=== PATIENT | male | born 1990 | race Caucasian/White ===

== ENCOUNTER 2020-08-22 15:13 | Emergency (ER) | payer OTHER, SELFPAY ==
--- NOTE | ~2020-08-22 | XR_ITS ---
EXAMINATION: XR foot RT min 3V DATE: 08/22/2020 16:01 INDICATION: Right foot injury and pain. TECHNIQUE: 4 views of right foot were obtained. COMPARISON: Right foot radiographs 07/28/2006 FINDINGS: There are nondisplaced comminuted fractures of the heads of third and fourth proximal phala nges with involvement of the articular services. There is mild osteoarthritis of first metatarsophala ngeal joint and some of the interphalangeal joints. IMPRESSION: 1. Nondisplaced comminuted fractures of the heads of third and fourth proximal phalanges. Reviewed, dictated and finalized at location A. ER
[2020-08-22 15:30] VITALS: BP 124/66; PULSE 77; RESP 16; TEMP 36.7; O2SAT 98
--- NOTE | 2020-08-22 15:37 | ED.LOWEXIN ---
HPI - Extremity Injury (Lower) General Chief Complaint: Extremity Injury, Lower Stated Complaint: toe injury Time Seen by Provider: 08/22/20 15:37 History of Present Illness HPI Narrative: 30 yo male presents to the ED for a toe injury. He dropped a deep freeze on his right foot about 1 hour ago. It landed across toes 1,2,3. He has moderate pain. He took tylenol before coming. ROM is mildly limited. He has bleeding from around the first toe nail. Related Data Allergies Allergy/AdvReac Type Severity Reaction Status Date / Time No Known Allergies Allergy Verified 08/22/20 15:32 Review of Systems Review of Systems: All systems reviewed & are unremarkable except as noted in HPI and below Constitutional: Constitutional: Denies chills, Denies fever(s) and Denies weakness ENT: Reports system reviewed and no additional complaints, except as documented Cardiovascular: Cardiovascular: Denies chest pain Respiratory: Respiratory: Denies dyspnea Gastrointestinal: Gastrointestinal: Reports no additional gastrointestinal complaints Musculoskeletal: Musculoskeletal: Denies back pain Neurologic: Denies dizziness, Denies numbness and Denies weakness Hematologic/Lymphatic: Hematologic/Lymphatic: Reports no additional hematologic/lymphatic complaints REPLACED BY [facility] Past Medical History Medical History Healthy adult male Social History Social History Smoking status: Never smoker Exam Const: General: healthy appearing, no acute distress and alert Orientation/consciousness: patient oriented x3 HENMT: Head: normal to inspection Resp: Effort & Inspection: normal respiratory effort Auscultation: clear to auscultation bilaterally Cardio: Rate: regular rate Rhythm: regular rhythm Other: 2 + right DP Skin: General skin exam: normal color Wounds: no wounds Neuro: General: patient oriented x3, moves all extremities and CN's II-XI intact bilaterally Speech: normal speech Extrem: Other: Mildly limited flexion in toes 1,2,3 on the right. Bleeding around first toenail bed. No obvious deformity. Course Vital Signs Vital signs: Vital Signs Temperature 36.7 C 08/22/20 15:30 Pulse Rate 77 08/22/20 15:30 Respiratory Rate 16 08/22/20 15:30 Blood Pressure 124/66 08/22/20 15:30 Pulse Oximetry 98 08/22/20 15:30 Temperature 36.7 C 08/22/20 15:30 Pulse Rate 77 08/22/20 15:30 Respiratory Rate 16 08/22/20 15:30 Blood Pressure 124/66 08/22/20 15:30 Pulse Oximetry 98 08/22/20 15:30 MDM - Extremity Injury (Lower) Differential Diagnosis Differential diagnosis: Likely fracture of toe Discharge Plan Discharge Clinical Impression: Fracture of toe of right foot Qualifiers: Encounter type: initial encounter Toe: lesser toe Fracture type: closed Phalanx: proximal Fracture alignment: nondisplaced Qualified Code(s): S92.514A - Nondisplaced fracture of proximal phalanx of right lesser toe(s), initial encounter for closed fracture Patient Disposition: Home, Self-Care Condition: Stable Instructions: Toe Fracture (ED) Follow-up/Referrals: PHYSICIAN,DRUM PRINTER [Primary Care Provider] - Radha Solis DO [Physician] -
[2020-08-22] MEDS: IBUPROFEN 600 MG TABLET PO (16:07)
== END 2020-08-22 17:13 | disposition home or self-care (01) ==
PROVIDERS: Emergency Provider Emergency Medicine
DX: S92.514A Nondisplaced fracture of proximal phalanx of right lesser toe(s), initial encounter for closed fracture (principal); W20.8XXA Other cause of strike by thrown, projected or falling object, initial encounter
CPT/HCPCS: 73630; 99284; A9270

== ENCOUNTER 2021-10-12 13:25 | Emergency (ER) | payer OTHER, SELFPAY ==
--- NOTE | ~2021-10-12 | CT_ITS ---
EXAMINATION: CT abdomen pelvis w con DATE: 10/12/2021 14:33 INDICATION: Bilateral flank pain, testicular pain. Nausea and vomiting. TECHNIQUE: Computed tomography (CT) of the abdomen and pelvis was performed with 100 CC Omnipaque 350 intravenous contrast. Automated exposure control and iterative reconstruction technique were employe d. Exam dose: 437.42 mGy-cm total exam DLP. COMPARISON: None. FINDINGS: There is minimal dependent atelectasis in both lower lobes. Normal heart size. No pericardial or pleural effusion. The liver, gallbladder, bile ducts, spleen, pancreas, pancreatic duct, and adrenal glands and kidneys are unremarkable. No urinary tract calculus or hydroureteronephrosis. The urinary bladder is evacuat ed. Normal caliber of the abdominal aorta. No intraperitoneal or retroperitoneal or pelvic mass lesion or adenopathy or ascites. Normal appendix. No bowel obstruction, bowel wall thickening, pneumatosis or intraperitoneal free air . Very small fat-containing umbilical hernia. Included skeletal structures are unremarkable. IMPRESSION: No significant abnormality Reviewed, dictated and finalized at Location A. Reviewed, dictated and finalized at location A. IMPRESSION: No significant abnormality
--- NOTE | ~2021-10-12 | US_ITS ---
US scrotum doppler DATE: 10/12/2021 16:18 INDICATION: Scrotal pain TECHNIQUE: Real-time and color flow imaging and Doppler analysis of the scrotal contents COMPARISON: None FINDINGS: No testicular mass lesion or torsion. Normal bilateral epidymidis. Small bilateral hydroc eles. No varicoceles. IMPRESSION: Small hydroceles; no testicular mass lesion or torsion Reviewed, dictated and finalized at [facility]. Reviewed, dictated and finalized at location A.
[2021-10-12 13:39] VITALS: BP 169/87; PULSE 96; RESP 16; TEMP 36.8; O2SAT 98
--- NOTE | 2021-10-12 13:54 | ED.GENADULT ---
HPI - General Adult General Chief complaint: Nausea/Vomiting/Diarrhea Stated complaint: NUNEZ, testicular pain, vomiting Time Seen by Provider: 10/12/21 13:43 Source: patient and family Limitations: no limitations History of Present Illness HPI narrative: Patient is 31 years old white male had sudden onset of left flank pain, then right flank pain across lower back started last night at 9 PM while sitting watching TV. Later started having pain in the testicle bilaterally, 2 hours later started having generalized headache which is intermittent for the last 6 years. Patient reports nausea and the vomiting up to 5 times since last night. Patient reports lifting a toilet yesterday during noon . But he said that was very light wt.. Currently patient main complaint is back pain. Patient denies any fever, chills, diarrhea, constipation, urinary symptoms. Related Data Allergies Allergy/AdvReac Type Severity Reaction Status Date / Time No Known Allergies Allergy Verified 08/22/20 15:32 Review of Systems Review of Systems: CONSTITUTIONAL: Denies fever, chills, or sweats. EYES: Denies visual changes, redness, or discharge. ENT: Denies rhinorrhea, congestion, sore throat, or otalgia. CARDIOVASCULAR: Denies chest pain, palpitations, or edema. RESPIRATORY: Denies cough or dyspnea. GASTROINTESTINAL: Denies abdominal pain, nausea, vomiting, or diarrhea. GENITOURINARY: Denies dysuria or hematuria. SKIN: Denies rash or itching. MUSCULOSKELETAL: Denies back pain, joint pain, or myalgia. NEUROLOGIC: Denies headache, numbness, or weakness. PSYCHIATRIC: Denies anxiety or depression. PMFSH Past Medical History Medical History Healthy adult male Social History Social History Smoking status: Never smoker Exam Narrative: General appearance: Well-developed, well-nourished Skin: Normal color Head: Normocephalic, nontraumatic Eyes: Clear conjunctiva ENT: Oropharynx normal, ears normal, nose normal Neck: Supple, nontender Chest and respiratory: Airway patent, no respiratory distress, no accessory muscle use Heart: Regular rate/rhythm Abdomen: Soft, nontender, no organomegaly, quiet bowel sounds Vascular: Normal peripheral pulses, normal capillary refill. Musculoskeletal: Normal range of motion, nontender back Neurologic: Alert and oriented ?3, [employer] is normal as tested, no gross motor deficit Course Course Emergency Course: Stable Work-up did not show any significant findings to explain patient condition. Musculoskeletal pain is my concern. Patient lifted a toilet few hours prior to the beginning of the pain. Vomiting could be secondary to the severity of the pain, radiation of pain to the testicles is uncertain etiology at this time. The head which should been going on for the last 6 years. Patient will be discharged on naproxen Vital Signs Vital signs: Vital Signs Temperature 36.8 C 10/12/21 13:39 Pulse Rate 96 10/12/21 13:39 Respiratory Rate 16 10/12/21 13:39 Blood Pressure 169/87 H 10/12/21 13:39 Pulse Oximetry 98 10/12/21 13:39 Temperature 36.8 C 10/12/21 13:39 Pulse Rate 96 10/12/21 13:39 Respiratory Rate 16 10/12/21 13:39 Blood Pressure 169/87 H 10/12/21 13:39 Pulse Oximetry 98 10/12/21 13:39 Medical Decision Making [facility] Narrative Medical decision making narrative: Patient presents with lower back, flank pain, testicular pain, headache. Kidney stone is my concern versus pyelonephritis. Differential Diagnosis Differential Diagnosis: Pyelonephritis, kidney stone, urinary tract infection, musculoskeletal pain Vital
[2021-10-12] MEDS: HYDROmorphone HCL INJ (*CRX) 1 MG/ML SYR 0.5 MG IV PUSH (14:03)
[2021-10-12] MEDS: ONDANSETRON INJ 4 MG/2 ML VIAL IV PUSH (14:03)
[2021-10-12] MEDS: SODIUM CHLORIDE 0.9% IV 1,000 ML 999 ML IV CONT (14:03)
[2021-10-12 14:10] LABS: Basophils Absolute Auto 0.1 K/mm3 (0.0-0.1); Basophils Percent Auto 0.5 % (0.2-1.2); Eosinophils Percent Auto 0.2 % (0-4.4); Hematocrit 41.7 % (42.0-52.0); Immature Granulocyte Absolute 0.07 K/mm3 (0.00-0.031); Immature Granulocyte Percent A 0.6 % (0-0.5); Lymphocytes Absolute Auto 0.52 K/mm3 (0.9-3.2); Lymphocytes Percent Auto 4.5 % (18.3-44.2); Mean Corpuscular HGB Conc 33.6 g/dl (32-36); Mean Corpuscular Hemoglobin 31.5 pg (26-34); Mean Corpuscular Volume 93.9 fl (80-100); Mean Platelet Volume 8.8 fl (7.4-10.4); Monocytes Absolute Auto 1.6 K/mm3 (0.1-0.6); Monocytes Percent Auto 13.5 % (2.6-8.5); Neutrophils Absolute Auto 9.3 K/mm3 (1.3-6.7); Neutrophils Percent Auto 80.7 % (45.5-73.1); Platelet Count Result 329 k/mm3 (150-375); Red Blood Count 4.44 M/mm3 (4.6-6.20); Red Cell Distribution Width 13.7 % (11.5-14.5); White Blood Count 11.5 K/mm3 (4.5-10.0)
[2021-10-12 14:19] LABS: Alanine Aminotransferase 25 U/L (4-50); Albumin Level 4.8 g/dL (3.5-5.1); Alkaline Phosphatase 84 U/L (38-126); Anion Gap 10 mmol/L (8-16); Aspartate Amino Transferase 30 U/L (17-59); Bilirubin,Total 0.3 mg/dL (0.2-1.3); Blood Urea Nitrogen 6 mg/dL (9-20); Calcium 9.2 mg/dL (8.4-10.2); Carbon Dioxide 21 mmol/L (22-30); Chloride 103 mmol/L (98-107); Estimated CRCL calculation 106 ml/min; Estimated Glomerular Filt Rate > 60; Glucose 128 mg/dL (65-110); Lipase 65 U/L (23-300); Potassium 3.4 mmol/L (3.4-5.0); Sodium 134 mmol/L (137-145)
[2021-10-12 14:53] LABS: Appearance Urine Clear (Clear); Bilirubin Urine Negative (Negative); Color Urine Yellow (Yellow); Glucose Urine UA Negative (Negative); Ketones Urine 1+ mg/dL (Negative); Leukocyte Esterase Ur Negative LEU/UL (Negative); Nitrate Urine Negative (Negative); Protein Urine Negative (Negative); Urobilinogen Urine 0.2 mg/dL (<2.0); pH Urine 6.5 (5.0-9.0)
[2021-10-12 14:55] LABS: Add Urine Microscopic? YES; Blood Urine Trace-Intact (Negative)
[2021-10-12 15:03] LABS: Mucus Urine Rare /lpf; RBC Urine 0-2 /hpf (0-2); WBC Urine 0-3 /hpf
[2021-10-12 17:34] VITALS: BP 146/86; PULSE 84; RESP 16; O2SAT 99
== END 2021-10-12 17:35 | disposition home or self-care (01) ==
PROVIDERS: Emergency Provider Emergency Medicine
DX: M54.50 Low back pain, unspecified (principal)
CPT/HCPCS: 36415; 74177; 76870; 80053; 81001; 83690; 85025; 93976; 96361; 96374; 96375; 99284; J1170; J2405; J7030; Q9967

== ENCOUNTER 2024-01-24 09:17 | Observation (INO) | payer OTHER, SELFPAY ==
[2024-01-24] VITALS (11 sets, daily range): BP systolic 105–139; BP diastolic 79–99; PULSE 76–89; RESP 10–23; TEMP 36.3–36.6; O2SAT 94–100; BMI 24.6
--- NOTE | ~2024-01-24 | CT_ITS ---
EXAMINATION: CT abdomen pelvis wo con DATE: 01/24/2024 10:30 INDICATION: Abdomen pain TECHNIQUE: Computed tomography (CT) of the abdomen and pelvis was performed without intravenous contr ast. The dose-length product was 253.64 mGy-cm. Automated exposure control and iterative reconstructi on technique were employed. COMPARISON: CT dated 10/12/2021. FINDINGS: Lung bases unremarkable. No significant pleural or pericardial effusion. No significant vas cular abnormality. No evidence for aortic aneurysm. No lymphadenopathy. The liver, spleen, pancreas, adrenal glands and kidneys are unremarkable. No hydronephrosis. Bladder is unremarkable. Normal appendix. No evidence for diverticulitis. No free air or free fluid. No evide nce for hernia. No acute osseous abnormality. IMPRESSION: 1. No acute abdominal abnormality. Reviewed, dictated and finalized at location B.
[2024-01-24 09:31] LABS: Basophils Percent Auto 0.2 % (0.2-1.2); Hematocrit 51.8 % (42.0-52.0); Hemoglobin 18.4 g/dL (14.0-18.0); Immature Granulocyte Absolute 0.12 K/mm3 (0.00-0.031); Immature Granulocyte Percent A 0.5 % (0-0.5); Lymphocytes Absolute Auto 1.79 K/mm3 (0.9-3.2); Lymphocytes Percent Auto 7.4 % (18.3-44.2); Mean Corpuscular HGB Conc 35.5 g/dl (32-36); Mean Corpuscular Hemoglobin 32.3 pg (26-34); Mean Platelet Volume 9.1 fl (7.4-10.4); Monocytes Absolute Auto 1.3 K/mm3 (0.1-0.6); Monocytes Percent Auto 5.5 % (2.6-8.5); Neutrophils Percent Auto 86.4 % (45.5-73.1); Platelet Count Result 426 k/mm3 (150-375); Red Blood Count 5.69 M/mm3 (4.6-6.20); Red Cell Distribution Width 13.1 % (11.5-14.5); White Blood Count 24.3 K/mm3 (4.5-10.0)
[2024-01-24 09:42] LABS: Alanine Aminotransferase 36 U/L (6-50); Albumin Level 5.7 g/dL (3.5-5.1); Alkaline Phosphatase 104 U/L (38-126); Anion Gap 25 mmol/L (4-12); Aspartate Amino Transferase 35 U/L (17-59); Bilirubin,Total 0.8 mg/dL (0.2-1.3); Blood Urea Nitrogen 33 mg/dL (9-20); Calcium 10.5 mg/dL (8.4-10.2); Carbon Dioxide 22 mmol/L (22-30); Chloride 88 mmol/L (98-107); Estimated Glomerular Filt Rate 15; Glucose 161 mg/dL (65-110); Lipase 72 U/L (23-300); Potassium 3.8 mmol/L (3.4-5.0); Sodium 135 mmol/L (137-145)
--- NOTE | 2024-01-24 10:07 | ED.GENADULT ---
HPI - General Adult General Chief complaint: Nausea/Vomiting/Diarrhea Stated complaint: N/V Time Seen by Provider: 01/24/24 09:18 History of Present Illness HPI narrative: 33 old male present to the emergency department for evaluation for persistent nausea and vomiting. Patient describes muscle cramping body aches as well. Patient reports he has been working in the heat for the last 2 days, started developing some abdominal cramping and nausea yesterday and then symptoms worsened into the evening. Related Data Home Medications Medication Instructions Recorded Confirmed acetaminophen 500 mg tablet 500 mg PO QID PRN Toothache 01/24/24 01/24/24 Allergies Allergy/AdvReac Type Severity Reaction Status Date / Time No Known Allergies Allergy Verified 01/24/24 09:25 Review of Systems Review of Systems: All systems reviewed & are unremarkable except as noted in HPI and below PMFSH Past Medical History Medical History (Updated 01/24/24 @ 15:28 by Mickey Naqvi MD) Healthy adult male Tobacco dependence Social History Social History (Updated 01/24/24 @ 13:10 by Tati Hinojosa PA-C) Social History: Surrogate medical decision maker: Ileana Russo, spouse. Code status: Full code. Smoking packs per day: 2 Smoking cigarettes per day: 40.0 Smoking status: Heavy tobacco smoker Tobacco type: cigarettes Alcohol intake: never Substance use type: marijuana Last use: 01/22/24 Do You Feel Safe in your Home?: Yes Lack of Transportation: No Lack of Food: Never True Current Housing: I Have Housing Concerned About Future Housing: No Difficulty Paying Gas/Electric Bills: No Difficulty Paying for Meds: No Currently Unemployed: YES Education: Grade School Difficulty w/ Childcare or Family Care: No Spiritual care concerns: No Exam Narrative: APPEARANCE: Well appearing, no pain, no distress, well-nourished. HEAD: normocephalic, atraumatic. EYES: PERRLA/EOMI, conjunctivae clear. NOSE: Normal no drainage EARS:TMS clear with good light reflex. THROAT: Pharynx clear, no exudate. NECK: Supple. No adenopathy, no masses. RESPIRATORY: Airway patent, respirations nonlabored. Clear to auscultation bilaterally, no rales, rhonchi, wheezing. CARDIOVASCULAR: Regular rate and rhythm without murmurs rubs or gallops. ABDOMINAL: Soft, nontender, nondistended, normal bowel sounds MUSCULOSKELETAL: Moves all extremities. Strength/ROM intact, No edema, No calf tenderness. NEURO: Alert. Cranial nerves II through XII intact. Grossly intact SKIN: Warm, dry. Normal Color Course Vital Signs Vital signs: Vital Signs Pulse Rate 89 01/24/24 09:25 Respiratory Rate 10 L 01/24/24 09:25 Blood Pressure 105/93 H 01/24/24 09:25 Pulse Oximetry 99 01/24/24 09:25 Pulse Rate 82 01/24/24 12:31 Respiratory Rate 21 H 01/24/24 12:31 Blood Pressure 128/91 H 01/24/24 12:31 Pulse Oximetry 98 01/24/24 12:31 Medical Decision Making MDM Narrative Medical decision making narrative: [age] old male presents emergency department for evaluation for dehydration with persistent nausea and vomiting with associated abdominal cramping. Patient is afebrile but does have a leukocytosis of 24.3 and hemoglobin of 18.4. This that to be secondary to hemoconcentration. Patient does have acute kidney injury with a creatinine of 4.6 which is typically is baseline of 0.9. CT abdomen pelvis shows no acute abnormality. Patient was started on 2 L of IV fluid in the emergency department. Patient is tolerating p.o.. Patient was updated the results of his workup patient was comfortable the plan for admission for rehydration. Case was discussed with hospitalist patient was accepted for admission. Patient was started on maintenance fluids and started on a renal diet at time of admission. Differential Diagnosis Differential Diagnosis: Urinary retention, dehydration, rhabdomyolysis, electrolyte abnorm
[2024-01-24] MEDS: ONDANSETRON INJ 4 MG/2 ML VIAL IV PUSH (10:33)
[2024-01-24] MEDS: SODIUM CHLORIDE 0.9% IV 1,000 ML 999 ML IV CONT ×2 (10:33→15:01)
[2024-01-24 11:15] LABS: Creatine Kinase 680 U/L (55-170); Magnesium 2.1 mg/dL (1.6-2.3)
--- NOTE | 2024-01-24 12:10 | PC.NURSE ---
patient states they are going to attempt to urinate now that IV fluids have infused. declines straight cath for urine sample
[2024-01-24 12:55] LABS: Appearance Urine Cloudy (Clear); Bacteria Urine None Seen /hpf; Bilirubin Urine Negative (Negative); Blood Urine 2+ (Negative); Color Urine Dark Yellow (Yellow); Glucose Urine UA Negative (Negative); Ketones Urine 1+ mg/dL (Negative); Leukocyte Esterase Ur Negative LEU/UL (Negative); Need Manual Microscopic Reviewed; Nitrate Urine Negative (Negative); Non Pathogenic Casts >20; Protein Urine 2+ mg/dL (Negative); RBC Urine 0-2 /hpf (0-2); Specific Grav Ur 1.023 (1.001-1.035); Squamous Epithelial Cell Urine Occasional /hpf (Few); Urobilinogen Urine 0.2 mg/dL (<2.0); WBC Urine 0-5 /hpf (0-3)
[2024-01-24 12:56] LABS: Add Urine Microscopic? YES
--- NOTE | 2024-01-24 13:08 | PM.IMHP ---
H&P: HPI History of Present Illness Date/Time: 01/24/24 13:30 Chief Complaint: Nausea, vomiting, muscle cramps. Narrative: This is a 33-year-old male smoker who presented to the emergency department via EMS from home for evaluation of nausea, vomiting, and muscle cramps. The patient provides the following history. He was working outside in the heat the last 2 days and started to feel unwell just after midnight with diffuse cramping in his extremities and abdomen as well as nausea and vomiting. He tried to stay hydrated but reports that he was sweating quite a bit and he has not had much in the way of oral intake. His urine output seems to have dropped off somewhat. He denies fever, chills, sweats, hematemesis, diarrhea, melena, hematochezia, dysuria, and hematuria. In the ED: He was afebrile on arrival with stable vital signs. Labs were significant for WBC count of 24.3, hemoglobin 18.4, sodium 135, chloride 88, BUN 33, creatinine 4.60, anion gap 22, calcium 10.5, CK 680, total protein 11.0, albumin 5.7. Urinalysis was positive for 2+ protein, +ketones, 2+ blood. CT of the abdomen pelvis showed no acute abnormalities. He received a L of normal saline is being admitted in this setting for further treatment and evaluation. Review of Systems Review of Systems: 12 systems were reviewed and are negative except for as per HPI. [facility] Past Medical History Medical History Healthy adult male Tobacco dependence Surgical History Surgical History (Updated 01/24/24 @ 20:52 by Tati Hinojosa PA-C) History of open reduction and internal fixation (ORIF) procedure Repair right hand fracture. Family History Family History (Updated 01/24/24 @ 20:52 by Tati Hinojosa PA-C) Other Family history non-contributory Social History Social History (Updated 01/24/24 @ 20:52 by Tati Hinojosa PA-C) Social History: Surrogate medical decision maker: Ileana Rsuso, spouse. Code status: Full code. Smoking packs per day: 2 Smoking cigarettes per day: 40.0 Smoking status: Heavy tobacco smoker Tobacco type: cigarettes Alcohol intake: never Substance use type: marijuana Last use: 01/22/24 Do You Feel Safe in your Home?: Yes Lack of Transportation: No Lack of Food: Never True Current Housing: I Have Housing Concerned About Future Housing: No Difficulty Paying Gas/Electric Bills: No Difficulty Paying for Meds: No Currently Unemployed: YES Education: Grade School Difficulty w/ Childcare or Family Care: No Additional living arrangements comments: Lives with spouse in their 3 children. Spiritual care concerns: No Meds Home Medications and Allergies Home Medications Medication Instructions Recorded Confirmed Type acetaminophen 500 mg tablet 500 mg PO QID PRN Toothache 01/24/24 01/24/24 History Allergies Allergy/AdvReac Type Severity Reaction Status Date / Time No Known Allergies Allergy Verified 01/24/24 09:25 Vital Signs Vital Signs - 24 hr 01/24/24 09:25 01/24/24 10:45 01/24/24 11:01 Pulse Rate 89 81 87 Respiratory Rate 10 L 16 18 Blood Pressure 105/93 H 128/93 H 132/99 H Pulse Oximetry 99 100 99 01/24/24 11:16 01/24/24 11:30 01/24/24 11:45 Pulse Rate 78 79 76 Respiratory Rate 20 23 H 23 H Blood Pressure 133/87 132/86 126/88 Pulse Oximetry 96 94 97 01/24/24 12:01 01/24/24 12:31 Pulse Rate 80 82 Respiratory Rate 15 21 H Blood Pressure 136/87 128/91 H Pulse Oximetry 100 98 Exam Narrative: General: Mildly ill-appearing gentleman sitting up in bed in no distress. Weight: 71.3 kg. BMI: 24.6. HEENT: PERRL, EOMI. Sclera anicteric. Tacky mucous membranes. Neck: Supple. Respiratory: Lungs are clear to auscultation bilaterally. Cardiovascular: Regular rate and rhythm with S1-S2. Gastrointestinal: Abdomen is soft, nontender, and nondistended with positive bowel sounds. Skin: Warm and dr
[2024-01-24] MEDS: SODIUM CHLORIDE 0.9% IV 1,000 ML 125 ML IV CONT (13:15)
[2024-01-24] MEDS: ACETAMINOPHEN 325 MG TABLET 650 MG PO (13:28)
--- NOTE | 2024-01-24 14:09 | PC.NURSE ---
This patient, Barak Russo, was admitted to 3 Med Surg Room 301-01. Patient/family oriented to hospital policies and general routines including ID bracelet, bed and alarms, visiting hours, pain management, procedures, bathroom and other care routines, personal items, smoking policy, room service/diet, and visiting hours. Information on how to activate the Rapid Response Team has been discussed. Patient/Family are encouraged to report perceived risks to care and to ask questions if they do not understand what they are told or what they should do.
[2024-01-24 14:19] LABS: Influenza A QL RT-PCR Negative (Negative); Influenza B QL RT-PCR Negative (Negative); RSV RNA, RT-PCR Negative (Negative); SARS-CoV-2 RNA PCR Negative (Negative)
[2024-01-24] MEDS: NICOTINE (*PBKC) 21 MG PATCH 1 PATCH TRANSDERM (16:44)
[2024-01-24 18:26] LABS: Anion Gap 14 mmol/L (4-12); Blood Urea Nitrogen 31 mg/dL (9-20); Calcium 8.4 mg/dL (8.4-10.2); Carbon Dioxide 27 mmol/L (22-30); Chloride 91 mmol/L (98-107); Creatine Kinase 914 U/L (55-170); Estimated CRCL calculation 39 ml/min; Estimated Glomerular Filt Rate 33; Glucose 108 mg/dL (65-110); Potassium 3.7 mmol/L (3.4-5.0); Sodium 132 mmol/L (137-145)
[2024-01-25] MEDS: SODIUM CHLORIDE 0.9% IV 1,000 ML 150 ML IV CONT ×4 (00:45→21:14)
[2024-01-25 05:28] VITALS: BP 117/69; PULSE 62; RESP 16; TEMP 36.4; O2SAT 98
[2024-01-25 06:20] LABS: Hematocrit 40.4 % (42.0-52.0); Hemoglobin 13.7 g/dL (14.0-18.0); Mean Corpuscular HGB Conc 33.9 g/dl (32-36); Mean Corpuscular Hemoglobin 31.9 pg (26-34); Mean Corpuscular Volume 94.2 fl (80-100); Mean Platelet Volume 9.1 fl (7.4-10.4); Platelet Count Result 313 k/mm3 (150-375); Red Blood Count 4.29 M/mm3 (4.6-6.20); Red Cell Distribution Width 13.3 % (11.5-14.5); White Blood Count 15.4 K/mm3 (4.5-10.0)
[2024-01-25 06:47] LABS: Alanine Aminotransferase 23 U/L (6-50); Alkaline Phosphatase 62 U/L (38-126); Anion Gap 8 mmol/L (4-12); Aspartate Amino Transferase 53 U/L (17-59); Bilirubin,Total 0.8 mg/dL (0.2-1.3); Blood Urea Nitrogen 20 mg/dL (9-20); Calcium 8.5 mg/dL (8.4-10.2); Carbon Dioxide 28 mmol/L (22-30); Chloride 97 mmol/L (98-107); Estimated CRCL calculation 72 ml/min; Estimated Glomerular Filt Rate > 60; Glucose 103 mg/dL (65-110); Magnesium 2.3 mg/dL (1.6-2.3); Sodium 133 mmol/L (137-145)
--- NOTE | 2024-01-25 07:12 | PM.IMPN ---
Progress Note: A&P Assessment and Plan (1) Acute kidney injury: Code(s): N17.9 - Acute kidney failure, unspecified Status: Acute Assessment and Plan: BUN/Cr 33/4.6 on admission. Likely related to severe dehydration. - BUN/Cr 20/1.2 on am labs - NS 150 ml/hr IV - Avoid nephrotoxic medications - Renally dose medications - Monitor vital signs and I/O - Monitor electrolytes and CBC with daily labs (2) Elevated CK: Code(s): R74.8 - Abnormal levels of other serum enzymes Status: Acute Assessment and Plan: CK slightly elevated at 680 on admission. Continues to up trend, 1412 on morning labs. - NS 150 ml/hr - Continue to monitor (3) Heat exhaustion: Code(s): T67.5XXA - Heat exhaustion, unspecified, initial encounter Status: Acute Assessment and Plan: Patient reports working in the heat for several days and staying poorly hydrated. Presents to the ED for nausea, vomiting and muscle cramps. (4) Tobacco dependence: Code(s): F17.200 - Nicotine dependence, unspecified, uncomplicated Status: Acute Assessment and Plan: Encouraged smoking cessation. - Nicotine patch available if needed Time Spent With Patient Time with patient: 25 - 35 minutes Subjective Date/time seen: 01/25/24 07:12 Interval history: 33-year-old male smoker who presented to the emergency department via EMS from home for evaluation of nausea, vomiting, and muscle cramps. Patient is pleasant lying comfortably in bed. He continues to endorse muscle cramps to his lower legs. He has no other complaints at this time. He denies chest pain, shortness a breath, nausea/vomiting, and changes in bowel bladder. Patient has been able to ambulate throughout his room unassisted. Review of Systems Review of Systems: All systems reviewed & are unremarkable except as noted in HPI and below Exam Narrative: AF HR 62 RR 16 SpO2 98 BP 117/69 General: well nourished, well-developed male in no acute respiratory distress who is nontoxic appearing, lying semi recumbent in bed. HEENT: Normocephalic. Atraumatic. Extraocular movement intact. Sclera clear and anicteric. No facial asymmetry. Chest: Lungs are clear to auscultation bilaterally. No wheezes or crackles. CV: Heart was regular rate and rhythm. S1/S2. No murmurs, gallops, or rubs. Abd: Abdomen was soft. Nontender. Nondistended. Positive bowel sounds. No organomegaly or masses. Ext: No clubbing, cyanosis, or edema. 2+ DP pulses bilaterally. Neuro: Strength is 5/5 in both upper and lower extremities. Cranial nerves 2-12 are intact. Speech is clear. Psych: Normal mood and affect. Patient is pleasant and cooperative. Skin: Warm and dry. No rashes noted. Objective Data Vital Signs Vital Signs: Vital Signs - 24 hr 01/24/24 09:25 01/24/24 10:45 01/24/24 11:01 Temperature Pulse Rate 89 81 87 Respiratory Rate 10 L 16 18 Blood Pressure 105/93 H 128/93 H 132/99 H Pulse Oximetry 99 100 99 Oxygen Delivery 01/24/24 11:16 01/24/24 11:30 01/24/24 11:45 Temperature Pulse Rate 78 79 76 Respiratory Rate 20 23 H 23 H Blood Pressure 133/87 132/86 126/88 Pulse Oximetry 96 94 97 Oxygen Delivery 01/24/24 12:01 01/24/24 12:31 01/24/24 14:00 Temperature 97.9 F Pulse Rate 80 82 79 Respiratory Rate 15 21 H 16 Blood Pressure 136/87 128/91 H 125/79 Pulse Oximetry 100 98 96 Oxygen Delivery 01/24/24 16:04 01/24/24 21:24 01/25/24 05:28 Temperature 97.3 F L 97.5 F L Pulse Rate 78 62 Respiratory Rate 16 16 Blood Pressure 139/84 117/69 Pulse Oximetry 100 98 98 Oxygen Delivery Room Air Intake/Output Intake/Output: Intake & Output 01/22/24 01/23/24 01/24/24 01/25/24 23:59 23:59 23:59 23:59 Intake Total 3970 500 Balance 3970 500 Meds/Results Medications: Active Medications Generic Name Dose Route Start Last Admin Trade Name Freq PRN Reason Stop Dose Admin Acetaminophen 650 mg 01/24/24
[2024-01-25 07:13] LABS: Creatine Kinase 1412 U/L (55-170)
[2024-01-25] MEDS: NICOTINE (*PBKC) 21 MG PATCH 1 PATCH TRANSDERM (08:22)
[2024-01-25] MEDS: ENOXAPARIN 30 MG/0.3 ML SYRINGE SUB-Q (08:26)
[2024-01-25 14:00] VITALS: BP 130/78; PULSE 67; RESP 16; TEMP 36.8; O2SAT 97
[2024-01-25 20:59] VITALS: BP 124/80; PULSE 60; RESP 16; TEMP 36.6; O2SAT 99
[2024-01-26 04:39] VITALS: BP 125/78; PULSE 62; RESP 16; TEMP 36.3; O2SAT 99
[2024-01-26 05:52] LABS: Basophils Absolute Auto 0.1 K/mm3 (0.0-0.1); Basophils Percent Auto 0.6 % (0.2-1.2); Eosinophils Absolute Auto 0.1 K/mm3 (0-0.3); Eosinophils Percent Auto 1.4 % (0-4.4); Hematocrit 38.5 % (42.0-52.0); Hemoglobin 12.8 g/dL (14.0-18.0); Immature Granulocyte Absolute 0.03 K/mm3 (0.00-0.031); Immature Granulocyte Percent A 0.3 % (0-0.5); Lymphocytes Absolute Auto 3.83 K/mm3 (0.9-3.2); Lymphocytes Percent Auto 37.4 % (18.3-44.2); Mean Corpuscular HGB Conc 33.2 g/dl (32-36); Mean Corpuscular Hemoglobin 32.1 pg (26-34); Mean Corpuscular Volume 96.5 fl (80-100); Mean Platelet Volume 9.2 fl (7.4-10.4); Monocytes Absolute Auto 0.9 K/mm3 (0.1-0.6); Monocytes Percent Auto 9.2 % (2.6-8.5); Neutrophils Absolute Auto 5.2 K/mm3 (1.3-6.7); Neutrophils Percent Auto 51.1 % (45.5-73.1); Platelet Count Result 259 k/mm3 (150-375); Red Blood Count 3.99 M/mm3 (4.6-6.20); White Blood Count 10.2 K/mm3 (4.5-10.0)
[2024-01-26 06:17] LABS: Alanine Aminotransferase 31 U/L (6-50); Albumin Level 3.7 g/dL (3.5-5.1); Alkaline Phosphatase 51 U/L (38-126); Anion Gap 8 mmol/L (4-12); Aspartate Amino Transferase 58 U/L (17-59); Bilirubin,Total 0.8 mg/dL (0.2-1.3); Blood Urea Nitrogen 13 mg/dL (9-20); Calcium 8.5 mg/dL (8.4-10.2); Carbon Dioxide 25 mmol/L (22-30); Chloride 102 mmol/L (98-107); Creatine Kinase 1357 U/L (55-170); Estimated CRCL calculation 106 ml/min; Estimated Glomerular Filt Rate > 60; Glucose 95 mg/dL (65-110); Potassium 4.2 mmol/L (3.4-5.0); Sodium 135 mmol/L (137-145)
[2024-01-26] MEDS: NICOTINE (*PBKC) 21 MG PATCH 1 PATCH TRANSDERM (08:29)
[2024-01-26] MEDS: ENOXAPARIN 40 MG/0.4 ML SYRINGE SUB-Q (08:30)
--- NOTE | 2024-01-26 10:43 | PM.DS ---
DS: Admitting Diagnosis Discharge Date January 26, 2024 Admitting Diagnosis Acute kidney injury DS: Discharge Diagnosis Discharge Diagnosis (1) Elevated CK: Code(s): R74.8 - Abnormal levels of other serum enzymes Status: Acute (2) Tobacco dependence: Code(s): F17.200 - Nicotine dependence, unspecified, uncomplicated Status: Acute (3) Dehydration: Code(s): E86.0 - Dehydration Status: Acute (4) Acute kidney injury: Code(s): N17.9 - Acute kidney failure, unspecified Status: Acute DS: Summary Hospital Course Hospital Course: This is a pleasant 33-year-old male with a history of active smoking who presents to [facility] via EMS for evaluation of nausea vomiting and muscle cramps. Two days prior to admission patient was working and cutting lawns in the hot sun continued on to the day prior to admission. On the day of admission the patient began to experience nausea vomiting and severe muscle cramps in his legs. [facility] demonstrated an elevated serum creatinine kinase, BUN 33 serum creatinine 4.6. The patient was admitted for fluid resuscitation. On 01/26/2024 the patient's symptomatology has completely resolved. His kidney injury has completely resolved. He is urinating clear yellow urine. His heat injury causing VIANCA has resolved. His discharged home in stable condition on 01/26/2024. He was educated on smoking cessation on multiple occasions. Patient appears amenable to quit. Nicotine patch has been prescribed on discharge. He does not have a PCP, he is advised to establish new care within the next 2 weeks to which he agrees. Patient was full code. Time spent discussing smoking cessation with patient: 3 to 10 minutes Status at Discharge Functional status at discharge: independent ambulation Overall status at discharge: patient is back to baseline Time Spent with Patient Time attestation: Total time spent providing and/or coordinating discharge services: Time spent: Greater than 30 minutes Exam Const: General: cooperative and no acute distress Resp: Effort & Inspection: normal respiratory effort Auscultation: clear to auscultation bilaterally Cardio: Rate: regular rate Rhythm: regular rhythm Heart sounds: S1 normal heart sound present and S2 normal heart sound present GI: GI Palp: No abdominal tenderness Auscultation: normal bowel sounds DS: Data Data Completed and Pending Labs on day of discharge: Labs from last 24 hours 01/26/24 05:15 WBC 10.2 H RBC 3.99 L Hgb 12.8 L Hct 38.5 L MCV 96.5 MCH 32.1 MCHC 33.2 RDW 13.0 Plt Count 259 MPV 9.2 Immature Gran % (Auto) 0.3 Neut % (Auto) 51.1 Lymph % (Auto) 37.4 Vernon % (Auto) 9.2 H Eos % (Auto) 1.4 Baso % (Auto) 0.6 Lymph # (Auto) 3.83 H Vernon # (Auto) 0.9 H Eos # (Auto) 0.1 Baso # (Auto) 0.1 Abs Immat Gran (auto) 0.03 Absolute Neuts (auto) 5.2 Absolute Nucleated RBC 0.000 Nucleated RBC % 0.0 Sodium 135 L Potassium 4.2 Chloride 102 Carbon Dioxide 25 Anion Gap 8 BUN 13 D Creatinine 0.80 Estim Creat Clear Calc 106 Estimated GFR > 60 Glucose 95 Calcium 8.5 Total Bilirubin 0.8 AST 58 ALT 31 Alkaline Phosphatase 51 Total Creatine Kinase 1357 H Total Protein 6.0 L Albumin 3.7 Discharge Plan Discharge Attending physician on discharge: Khloe Gomez Consulting providers: Priscila Vuong Discharging Clinician: Khloe Gomez Patient Disposition: Home, Self-Care Activity: may shower Diet: as tolerated Patient Instructions: Antibiotic Form, How to Stop Smoking (DC), Heatstroke (GEN) Stand Alone Forms: General Discharge Information Follow-up/Referrals: PHYSICIAN,MACHINE II CUTTER [Primary Care Provider] - Call for Appointment (establish care with a PCP within 2 weeks) Discharge Medications: New nicotine [Nicoderm CQ] 21 mg/24 hr Patch 24 Hour 1 patch transdermal DAILY Qty: 28 0RF Discontinued acetamino
== END 2024-01-26 12:00 | disposition home or self-care (01) ==
LOC: ANHED 09:39 → ANH3MEDSUR 13:47
PROVIDERS: Physician Assistant; Admitting Provider Hospitalist; Emergency Provider Emergency Medicine; Visit Provider Student in an Organized Health Care Education/Training Program
DX: N17.9 Acute kidney failure, unspecified (principal); E86.0 Dehydration; T67.5XXA Heat exhaustion, unspecified, initial encounter; R74.8 Abnormal levels of other serum enzymes; X58.XXXA Exposure to other specified factors, initial encounter; F17.210 Nicotine dependence, cigarettes, uncomplicated; F12.90 Cannabis use, unspecified, uncomplicated; Z20.822 Contact with and (suspected) exposure to COVID-19
CPT/HCPCS: 36415; 74176; 80048; 80053; 81001; 82550; 83690; 83735; 85025; 85027; 87637; 96361; 96372; 96374; 99285; A9270; G0378; G0379; J1650; J2405; J7030

== ENCOUNTER 2024-02-16 12:55 | Observation (INO) | payer OTHER, SELFPAY ==
[2024-02-16] VITALS (22 sets, daily range): BP systolic 115–135; BP diastolic 67–82; PULSE 56–91; RESP 12–25; TEMP 36.7; O2SAT 96–100
--- NOTE | ~2024-02-16 | CT_ITS ---
CTA brain carotid Ordering provider: Piero Corey MD History: . left side numbness . Comparison: None. Technique: CT angiogram head and neck was performed following timed intravenous injection of contrast . Thin slice axial images and reformatted coronal images were obtained. Three dimensional reformatted images of the brain were also obtained using a [employer] workstation. Radiation reduction technique ut ilized. The dose-length product was 1644.58 mGy-cm. FINDINGS: HEAD: --ANTERIOR AND MIDDLE CEREBRAL ARTERIES AND BRANCHES: Normal caliber and contour. --INTERNAL CAROTID ARTERIES: no significant stenosis. No occlusion. --BASILAR ARTERY AND BRANCHES: Normal caliber and contour. No atheromatous disease. --POSTERIOR CEREBRAL ARTERIES: Normal caliber and contour --POSTERIOR COMMUNICATING ARTERIES: Not visualized which is probably related to congenital absence or small size. --ANEURYSM: None visualized. --BRAIN: Normal for patient's age. . No acute intracranial process. --BONES AND SUPERFICIAL SOFT TISSUES: Normal. --PARANASAL SINUSES AND MASTOIDS: Right nasal septal deviation. Soft tissue density seen in the nasop harynx. Clinical evaluation advised. NECK: --RIGHT CERVICAL CAROTID SYSTEM: Normal caliber and contour. Percent stenosis per NASCET criteria is 0%. No carotid dissection. Otherwise, no significant atheromatous disease or stenosis of the cervica l carotid system. --LEFT CERVICAL CAROTID SYSTEM: Normal caliber and contour. Percent stenosis per NASCET criteria is 0%. No carotid dissection. Otherwise, no significant atheromatous disease or stenosis of the cervical carotid system. --VERTEBRAL ARTERIES: Normal caliber and contour. --VISUALIZED AORTIC ARCH AND BRANCHING VESSELS: Normal caliber and contour. No significant atheromato us disease. --SOFT TISSUES: Enlarged lymph nodes are seen in the right side of the neck. Soft tissue density in t he nasopharynx clinical evaluation advised. --CERVICAL SPINE: Normal. IMPRESSION: 1. Normal CTA head and neck. Percent stenosis per NASCET criteria is 0%. 2. No evidence of significant intracranial stenosis or occlusion. Reviewed, dictated and finalized at location A.
--- NOTE | ~2024-02-16 | MR_ITS ---
EXAMINATION: MR brain/brain stem wo/w con DATE: 02/17/2024 07:50 INDICATION: Left hemiparesis. Syncope. TECHNIQUE: Magnetic resonance imaging (MRI) of the brain and brainstem was performed without and with 15 mL MultiHance intravenous contrast. COMPARISON: Head CT 02/16/2024 FINDINGS: There is no intracranial hemorrhage, acute infarction, or abnormal intracranial mass lesion . The ventricles are normal in size. There is mild mucosal thickening in the paranasal sinuses. The o rbits are normal. The mastoid air cells are normal. IMPRESSION: 1. Normal brain. Reviewed, dictated and finalized at location A. IMPRESSION: 1. Normal brain.
--- NOTE | ~2024-02-16 | XR_ITS ---
EXAMINATION: XR chest 1V Exam Date/Time: 02/16/2024 14:50 CDT HISTORY: Weakness NEAR SYNCOPAL EPISODE Comparison: None. RESULT: Lines, tubes, and devices: None. Lungs and pleura: Clear. Cardiomediastinal silhouette: Unremarkable. Other: No acute osseous or upper abdominal finding. IMPRESSION: No acute cardiopulmonary process. Reviewed, dictated and finalized at location K.
--- NOTE | ~2024-02-16 | MR_ITS ---
EXAMINATION: MR cervical spine wo/w con DATE: 02/18/2024 08:12 INDICATION: Left hemiparesis. TECHNIQUE: Magnetic resonance imaging (MRI) of the cervical spine was performed without and with 15 m L MultiHance intravenous contrast. COMPARISON: None FINDINGS: Bone alignment is normal. There is mild chronic anterior wedging of T1 and T2 vertebral bod ies. Intervertebral disc heights are normal. The spinal cord signal intensity is normal. The followin g disc levels are specifically discussed: C2-C3: The disc does not extend beyond the endplate margin. There is no uncovertebral joint osteoarth ritis. There is no facet joint osteoarthritis. There is no neural foraminal stenosis. There is no edward tral canal stenosis. C3-C4: The disc does not extend beyond the endplate margin. There is no uncovertebral joint osteoarth ritis. There is mild right facet joint osteoarthritis. There is no neural foraminal stenosis. There i s no central canal stenosis. C4-C5: The disc does not extend beyond the endplate margin. There is no uncovertebral joint osteoarth ritis. There is no facet joint osteoarthritis. There is no neural foraminal stenosis. There is no edward tral canal stenosis. C5-C6: There is a central protrusion. There is no uncovertebral joint osteoarthritis. There is no fac et joint osteoarthritis. There is no neural foraminal stenosis. There is no central canal stenosis. C6-C7: There is a right central protrusion. There is no uncovertebral joint osteoarthritis. There is mild bilateral facet joint osteoarthritis. There is no neural foraminal stenosis. There is no central canal stenosis. C7-T1: The disc does not extend beyond the endplate margin. There is no uncovertebral joint osteoarth ritis. There is mild right and moderate left facet joint osteoarthritis. There is mild left neural fo raminal stenosis. There is no central canal stenosis. IMPRESSION: 1. Mild cervical spondylosis. Reviewed, dictated and finalized at location A.
--- NOTE | 2024-02-16 13:06 | ECG_ITS ---
Test Date: 2024-02-16 13:11:07 Measurements Intervals [place] Rate: 75 P: 42 MA: 138 QRS: 70 QRSD: 101 T: 53 QT: 369 QTc: 414 Interpretive Statements SINUS RHYTHM No previous ECG available for comparison Electronically Signed On 02-17-2024 10:13:57 CDT by Alejandro Dye M.D.
[2024-02-16] MEDS: SODIUM CHLORIDE 0.9% IV 1,000 ML 999 ML IV CONT (14:06)
[2024-02-16 14:13] LABS: Basophils Absolute Auto 0.1 K/mm3 (0.0-0.1); Basophils Percent Auto 0.4 % (0.2-1.2); Eosinophils Absolute Auto 0.2 K/mm3 (0-0.3); Eosinophils Percent Auto 1.3 % (0-4.4); Hemoglobin 14.3 g/dL (14.0-18.0); Immature Granulocyte Absolute 0.05 K/mm3 (0.00-0.031); Immature Granulocyte Percent A 0.4 % (0-0.5); Lymphocytes Absolute Auto 4.13 K/mm3 (0.9-3.2); Lymphocytes Percent Auto 30.5 % (18.3-44.2); Mean Corpuscular HGB Conc 33.3 g/dl (32-36); Mean Corpuscular Hemoglobin 31.8 pg (26-34); Mean Corpuscular Volume 95.6 fl (80-100); Monocytes Absolute Auto 0.9 K/mm3 (0.1-0.6); Monocytes Percent Auto 6.4 % (2.6-8.5); Neutrophils Absolute Auto 8.2 K/mm3 (1.3-6.7); Platelet Count Result 307 k/mm3 (150-375); Red Cell Distribution Width 13.5 % (11.5-14.5); White Blood Count 13.5 K/mm3 (4.5-10.0)
[2024-02-16 14:22] LABS: Prothrombin Time 13.5 Seconds (11.1-14.7)
[2024-02-16 14:23] LABS: Partial Thromboplastin Time 31.6 Seconds (22.3-36.8)
[2024-02-16 14:26] LABS: Lactic Acid Reflex 0.6 mmol/L (0.7-2.0)
[2024-02-16 14:28] LABS: Alanine Aminotransferase 15 U/L (6-50); Albumin Level 4.6 g/dL (3.5-5.1); Alkaline Phosphatase 63 U/L (38-126); Anion Gap 9 mmol/L (4-12); Aspartate Amino Transferase 21 U/L (17-59); Bilirubin,Total 0.6 mg/dL (0.2-1.3); Blood Urea Nitrogen 9 mg/dL (9-20); Calcium 9.6 mg/dL (8.4-10.2); Carbon Dioxide 24 mmol/L (22-30); Chloride 104 mmol/L (98-107); Estimated CRCL calculation 92 ml/min; Estimated Glomerular Filt Rate > 60; Glucose 98 mg/dL (65-110); Magnesium 1.8 mg/dL (1.6-2.3); Potassium 3.8 mmol/L (3.4-5.0); Sodium 137 mmol/L (137-145)
[2024-02-16 14:31] LABS: Creatine Kinase 110 U/L (55-170)
[2024-02-16 14:39] LABS: Troponin I < 0.012 ng/mL (0.000-0.034)
--- NOTE | 2024-02-16 14:50 | PC.NURSE ---
pt to CT scan via stretcher at this time
[2024-02-16 15:02] LABS: Ethanol < 10 mg/dL (<10)
[2024-02-16 15:31] LABS: Add Urine Microscopic? YES; Appearance Urine Clear (Clear); Bacteria Urine None Seen /hpf; Bilirubin Urine Negative (Negative); Blood Urine Negative (Negative); Color Urine Yellow (Yellow); Glucose Urine UA Negative (Negative); Ketones Urine Negative (Negative); Leukocyte Esterase Ur Negative LEU/UL (Negative); Nitrate Urine Negative (Negative); Protein Urine Trace mg/dL (Negative); RBC Urine 0-2 /hpf (0-2); Specific Grav Ur 1.012 (1.001-1.035); Squamous Epithelial Cell Urine None Seen /hpf (Few); WBC Urine 0-5 /hpf (0-3); pH Urine 6.5 (5.0-9.0)
[2024-02-16 15:44] LABS: Amphetamine Screen Urine Negative (Negative); Barbiturate Screen Urine Negative (Negative); Benzodiazepines Screen Urine Negative (Negative); Cannabinoid Screen Urine Positive (Negative); Cocaine Screen Urine Negative (Negative); Methadone Screen Urine Negative (Negative); Opiate Screen Urine Negative (Negative); Phencyclidine Screen Urine Negative (Negative)
--- NOTE | 2024-02-16 16:00 | ED.GENADULT ---
HPI - General Adult General Chief complaint: Neuro Symptoms/Deficit Stated complaint: left sided numbness/tingling Time Seen by Provider: 02/16/24 13:41 History of Present Illness HPI narrative: Patient is a 33 old gentleman who presents emergency department with chief complaint of left-sided weakness and the T the patient reports he has not been feeling well since yesterday reports that he had an episode where he felt like he was going to pass out and then felt as though the left side of his body is less strong than normal. The patient does have prior history of heat exhaustion and dehydration and rhabdomyolysis. Patient states that he does not feel right today and family is questioning whether he either had a stroke or a seizure Related Data Allergies Allergy/AdvReac Type Severity Reaction Status Date / Time No Known Allergies Allergy Verified 01/24/24 09:25 Review of Systems Review of Systems: A 10 system review of systems was completed on the patient and is negative except for what is stated in the HPI. Nursing and ancillary documentation was reviewed. [facility] Past Medical History Medical History Healthy adult male Tobacco dependence Surgical History Surgical History History of open reduction and internal fixation (ORIF) procedure Repair right hand fracture. Family History Family History Other Family history non-contributory Social History Social History Social History: Surrogate medical decision maker: Ileana Russo, spouse. Code status: Full code. Smoking packs per day: 2 Smoking cigarettes per day: 40.0 Smoking status: Heavy tobacco smoker Tobacco type: cigarettes Alcohol intake: never Substance use type: marijuana Last use: 01/22/24 Do You Feel Safe in your Home?: Yes Lack of Transportation: No Lack of Food: Never True Current Housing: I Have Housing Concerned About Future Housing: No Difficulty Paying Gas/Electric Bills: No Difficulty Paying for Meds: No Currently Unemployed: YES Education: Grade School Difficulty w/ Childcare or Family Care: No Additional living arrangements comments: Lives with spouse in their 3 children. Spiritual care concerns: No Exam Narrative: GENERAL: Well-appearing, well-nourished, and in no acute distress. HEAD: Normocephalic, atraumatic. EYES: PERRLA and EOMI. ENT: Nares clear, no rhinorrhea or epistaxis. Mucous membranes moist. NECK: Supple. CHEST: Clear to auscultation. No respiratory distress. HEART: Regular rate and rhythm. No murmur heard. Normal peripheral pulses. ABDOMEN: Soft, nontender, nondistended, normal active bowel sounds. EXTREMITIES: Normal range of motion. No edema. SKIN: Warm, dry, no rash. NEURO: No focal deficits. Alert and oriented x3. PSYCH: Normal mood and affect. Course Vital Signs Vital signs: Vital Signs Temperature 36.7 C 02/16/24 12:59 Pulse Rate 64 02/16/24 12:59 Respiratory Rate 16 02/16/24 12:59 Blood Pressure 129/82 02/16/24 12:59 Pulse Oximetry 97 02/16/24 12:59 Oxygen Delivery Room Air 02/16/24 12:59 Temperature 36.7 C 02/16/24 12:59 Pulse Rate 73 02/16/24 15:20 Respiratory Rate 20 02/16/24 15:20 Blood Pressure 129/76 02/16/24 15:20 Pulse Oximetry 97 02/16/24 15:20 Oxygen Delivery Room Air 02/16/24 12:59 Medical Decision Making [facility] Narrative Medical decision making narrative: Differential diagnosis includes CVA, seizure, electrolyte abnormality, rhabdomyolysis, dehydration Laboratory studies were obtained on the patient showed a CBC with a white count of 13.5 electrolytes are within normal limits CK was normal urinalysis showed no evidence UTI UDS was positive for cannabis
[2024-02-16 16:16] LABS: Procalcitonin 0.1 ng/mL
--- NOTE | 2024-02-16 16:44 | ECG_ITS ---
Test Date: 2024-02-16 16:50:03 Measurements Intervals [place] Rate: 75 P: 65 IA: 151 QRS: 75 QRSD: 103 T: 50 QT: 392 QTc: 439 Interpretive Statements SINUS RHYTHM Compared to ECG 02/16/2024 13:11:07 No significant changes Electronically Signed On 02-17-2024 10:16:29 CDT by Alejandro Dye M.D.
[2024-02-16 17:21] LABS: Troponin I < 0.012 ng/mL (0.000-0.034)
--- NOTE | 2024-02-16 17:40 | PM.IMHP ---
H&P: HPI History of Present Illness Date/Time: 02/16/24 17:40 Chief Complaint: Left face paresthesias. Narrative: This is a 33-year-old male smoker who presented to the emergency department via private vehicle for evaluation of left face paresthesias. The patient provides the following history. He felt fine when he got up yesterday morning and sometime around 14:00 simply while standing up talking to his family members he began to feel lightheaded as though he may pass out. He sat down quickly and denies having loss of consciousness however he was ?out of it? for about 2 minutes. Since that time he has had mild paresthesias over the left lower face and into the left upper extremity. He denies overt pain but reports a mild soreness in the left upper arm, almost as though the arm has fallen asleep. He denies vertigo, visual changes, facial droop, difficulty speaking and swallowing, and focal weakness. He also denies headache, neck ache, trauma, and injury. He has not had chest pain, pleuritic pain, palpitations, or sensations of irregular heartbeat. In the ED: He was afebrile on arrival with stable vital signs. CMP and CBC were pretty unremarkable. WBC count was elevated at 13.5 but that appears to be a chronic finding for this patient. Urinalysis was unremarkable. Urine drug screen was positive for cannabinoids. CTA of the head and neck was normal. Chest x-ray showed no acute cardiopulmonary disease. EKG showed a sinus rhythm with normal intervals and axis. He is being admitted in this setting for further workup. Review of Systems Review of Systems: 12 systems were reviewed and are negative except for as per HPI. [facility] Past Medical History Medical History (Updated 02/16/24 @ 23:10 by Tati Hinojosa PA-C) Tobacco dependence Surgical History Surgical History History of open reduction and internal fixation (ORIF) procedure Repair right hand fracture. Family History Family History Other Family history non-contributory Social History Social History Social History: Surrogate medical decision maker: Ileana Russo, spouse. Code status: Full code. Smoking packs per day: 2 Smoking cigarettes per day: 40.0 Smoking status: Current every day smoker Tobacco type: cigarettes Alcohol intake: never Substance use: current Substance use type: marijuana Last use: 01/22/24 Do You Feel Safe in your Home?: Yes Lack of Transportation: No Lack of Food: Never True Current Housing: I Have Housing Concerned About Future Housing: No Difficulty Paying Gas/Electric Bills: No Difficulty Paying for Meds: No Currently Unemployed: No Education: High School Diploma/GED Difficulty w/ Childcare or Family Care: No Additional living arrangements comments: Lives with spouse in their 3 children. Spiritual care concerns: No Meds Home Medications and Allergies Home Medications Medication Instructions Recorded Confirmed Type nicotine 21 mg/24 hr daily 1 patch transdermal DAILY #28 ea 01/26/24 02/16/24 Rx transdermal patch (Nicoderm CQ) acetaminophen 500 mg tablet 500 mg PO Q6H PRN Pain (Scale 02/16/24 02/16/24 History Score 1-3) Allergies Allergy/AdvReac Type Severity Reaction Status Date / Time No Known Allergies Allergy Verified 01/24/24 09:25 Vital Signs Vital Signs - 24 hr 02/16/24 12:59 02/16/24 13:47 02/16/24 13:47 Temperature 98.0 F Pulse Rate 64 87 91 Respiratory Rate 16 16 Blood Pressure 129/82 135/81 Pulse Oximetry 97 96 Oxygen Delivery Room Air 02/16/24 14:05 02/16/24 14:01 02/16/24 15:20 Temperature Pulse Rate 76 74 73 Respiratory Rate 20 20 20 Blood Pressure 128/76 128/76 129/76 Pulse Oximetry 96 98 97 Oxygen Delivery 02/16/24 14:59 02/16/24 15:01 02/16/24 15:20
--- NOTE | 2024-02-16 18:13 | ADMGEN ---
This patient, Barak Russo, was admitted to Medical Room 241-01. Patient/family oriented to hospital policies and general routines including ID bracelet, bed and alarms, visiting hours, pain management, procedures, bathroom and other care routines, personal items, smoking policy, room service/diet, and visiting hours. Information on how to activate the Rapid Response Team has been discussed. Patient/Family are encouraged to report perceived risks to care and to ask questions if they do not understand what they are told or what they should do.
[2024-02-17] VITALS (11 sets, daily range): BP systolic 127–136; BP diastolic 60–77; PULSE 56–73; RESP 17–20; TEMP 36.5–36.7; O2SAT 99
--- NOTE | 2024-02-17 | ECHO_ITS ---
Patient Info Name: Barak Russo Age: 33 years : 1990 Gender: Male Ht: 66 in Wt: 162 lbs BSA: 1.86 m2 HR: 59 bpm BP: 127 / 65 mmHg Heart Rhythm: Sinus Rhythm Technical Quality: Fair Exam Date: 02/17/2024 10:36 AM Exam Location: Echo Lab Patient Status: Outpatient Admit Date: 02/16/2024 Staff Ordering Physician: Tati Hinojosa PA-C Field Representatives Director: Cornelius Eden RDCS Attending Provider: Piero Brody MD Referring Physician: Ashish RUSSO; Exam Type: CA echo doppler w bubble study Study Info Indications - Neurologic symptoms paresthesias left face/arm Complete two-dimensional, color flow and Doppler transthoracic echocardiogram is performed with agitated saline. Contrast/Agitated Saline Contrast/Ag. Saline: Agitated Saline Amount: 14.00 ml IV Access Condition: patent with no signs of infiltration Summary 1. Left ventricular chamber dimension is normal. 2. Left ventricular systolic function is normal, estimated at 60-65%. 3. The left ventricular diastolic function is normal. 4. Right ventricular systolic function is normal. 5. Intact interatrial septum visualized by color flow and agitated saline imaging. Negative bubble study. 6. There is mild tricuspid valve regurgitation. Left Ventricle Left ventricular chamber dimension is normal. Left ventricular systolic function is normal, estimated at 60-65%. There is no increased left ventricular wall thickness. The left ventricular diastolic function is normal. Right Ventricle Right ventricular chamber dimension is normal. Right ventricular systolic function is normal. Left Atria Left atrial chamber dimension is normal. Right Atria Right atrial chamber dimension is normal. Atrial Septum Intact interatrial septum visualized by color flow and agitated saline imaging. Negative bubble study. Aortic Valve The aortic valve is trileaflet. There is no aortic valve stenosis. There is no aortic valve regurgitation. Pulmonic Valve The pulmonic valve is not well visualized. There is trace pulmonic regurgitation. Mitral Valve There is trace mitral valve regurgitation. Tricuspid Valve There is mild tricuspid valve regurgitation. Pericardium/Pleural There is no pericardial effusion. Inferior Vena Cava Normal inferior vena cava with >50% collapse upon inspiration consistent with normal right atrial pressure, 3 mmHg. Aorta The aortic root size at the sinus of Valsalva is normal. Left Ventricular Outflow Tract Name Value Normal LVOT 2D LVOT Diameter 2.0 cm LVOT Doppler LVOT Peak Gradient 5 mmHg LVOT Mean Gradient 2 mmHg LVOT VTI 20 cm LVOT VTI/AV VTI Ratio 0.8 LVOT Stroke Volume 62 ml LVOT CO 4.2 l/min LVOT CI 2.3 l/min/m2 Pulmonic Valve Name Value Normal PV Doppler
[2024-02-17 05:13] LABS: Hematocrit 40.9 % (42.0-52.0); Hemoglobin 13.4 g/dL (14.0-18.0); Mean Corpuscular HGB Conc 32.8 g/dl (32-36); Mean Corpuscular Hemoglobin 31.5 pg (26-34); Mean Corpuscular Volume 96.2 fl (80-100); Mean Platelet Volume 9.5 fl (7.4-10.4); Platelet Count Result 277 k/mm3 (150-375); Red Blood Count 4.25 M/mm3 (4.6-6.20); Red Cell Distribution Width 13.5 % (11.5-14.5); White Blood Count 9.4 K/mm3 (4.5-10.0)
[2024-02-17 05:25] LABS: Anion Gap 9 mmol/L (4-12); Blood Urea Nitrogen 11 mg/dL (9-20); Calcium 9.1 mg/dL (8.4-10.2); Carbon Dioxide 24 mmol/L (22-30); Chloride 104 mmol/L (98-107); Estimated CRCL calculation 92 ml/min; Estimated Glomerular Filt Rate > 60; Glucose 103 mg/dL (65-110); Magnesium 1.9 mg/dL (1.6-2.3); Potassium 4.4 mmol/L (3.4-5.0); Sodium 137 mmol/L (137-145)
[2024-02-17 06:02] LABS: Thyroid Stimulating Hormone Reflex 0.889 uIU/mL (0.465-4.68)
[2024-02-17] MEDS: NICOTINE (*PBKC) 21 MG PATCH 1 PATCH TRANSDERM (08:38)
--- NOTE | 2024-02-17 12:21 | WPDNEURCNPN ---
Assessment and Plan Assessment and plan (1) Paresthesia of left arm: Code(s): R20.2 - Paresthesia of skin Status: Acute (2) Facial paresthesia: Code(s): R20.2 - Paresthesia of skin Status: Acute Plan Paresthesia of left upper extremity with negative MRI of the head for the tumor vasculopathy or demyelinating phenomena will obtain the MRI of cervical spine before further recommendations are made in the meantime treatment will be continued as such. Echocardiogram has already been done which is normal even for the bubble study. Consult date: 02/17/24 HPI: Barak Russo is a 33 year old maleAdmitted to the hospital through the emergency room for the complaints of left facial paresthesias. Reportedly he was fine yesterday morning and sometimes around 1400 while standing up talking to his family members he felt lightheaded thought he is going to pass out he sat down quickly did not become unconscious but he was out of it for about 2minutes since that time in the left upper extremity in addition to the soreness in the left upper arm gave no history of any other general associated symptomatology or any other neurological symptomatology. On initial evaluation in the emergency room he was noted we afebrile routine blood studies were done CBC revealed leukocytosis which has been chronic phenomenon for him UA was negative except positive for the cannabinoids CT of the head and neck were normal chest x-ray revealed no acute cardiopulmonary disease and EKG revealed no irregularity of the heart. In the past patient has undergone open reduction internal fixation of the right hand fracture, he smokes 2 packs per day, and currently everyday smoker with history of 40 cigarettes per day he does not drink does use the substance and his home medication included only new codeine and time and also there is no allergies to any medication. As mentioned above CBC was normal CMP was normal CTA revealed no aneurysm or vascular stenosis chest x-ray was negative. MRI of the brain has been done today which revealed no space-occupying lesion, and no findings suggestive of demyelinating disease. [facility] Past Medical History Medical History Tobacco dependence Surgical History Surgical History History of open reduction and internal fixation (ORIF) procedure Repair right hand fracture. Family History Family History Other Family history non-contributory Social History Social History Social History: Surrogate medical decision maker: Ileana Russo, spouse. Code status: Full code. Smoking packs per day: 2 Smoking cigarettes per day: 40.0 Smoking status: Current every day smoker Tobacco type: cigarettes Alcohol intake: never Substance use: current Substance use type: marijuana Last use: 01/22/24 Do You Feel Safe in your Home?: Yes Lack of Transportation: No Lack of Food: Never True Current Housing: I Have Housing Concerned About Future Housing: No Difficulty Paying Gas/Electric Bills: No Difficulty Paying for Meds: No Currently Unemployed: No Education: High School Diploma/GED Difficulty w/ Childcare or Family Care: No Additional living arrangements comments: Lives with spouse in their 3 children. Spiritual care concerns: No Meds Home Medications and Allergies Home Medications Medication Instructions Recorded Confirmed Type nicotine 21 mg/24 hr daily 1 patch transdermal DAILY #28 ea 01/26/24 02/16/24 Rx transdermal patch (Nicoderm CQ) acetaminophen 500 mg tablet 500 mg PO Q6H PRN Pain (Scale 02/16/24 02/16/24 History Score 1-3) Allergies Allergy/AdvReac Type Severity Reaction Status Date / Time No Known Allergies Allergy Verified 01/24/24 09:25 Vital Signs Vital Sig
--- NOTE | 2024-02-17 14:05 | PM.IMHP ---
H&P: HPI History of Present Illness Date/Time: 02/17/24 11:05 Chief Complaint: Left arm weakness PMFSH Past Medical History Medical History Tobacco dependence Surgical History Surgical History History of open reduction and internal fixation (ORIF) procedure Repair right hand fracture. Family History Family History Other Family history non-contributory Social History Social History Social History: Surrogate medical decision maker: Ileana Karan, spouse. Code status: Full code. Smoking packs per day: 2 Smoking cigarettes per day: 40.0 Smoking status: Current every day smoker Tobacco type: cigarettes Alcohol intake: never Substance use: current Substance use type: marijuana Last use: 01/22/24 Do You Feel Safe in your Home?: Yes Lack of Transportation: No Lack of Food: Never True Current Housing: I Have Housing Concerned About Future Housing: No Difficulty Paying Gas/Electric Bills: No Difficulty Paying for Meds: No Currently Unemployed: No Education: High School Diploma/GED Difficulty w/ Childcare or Family Care: No Additional living arrangements comments: Lives with spouse in their 3 children. Spiritual care concerns: No Meds Home Medications and Allergies Home Medications Medication Instructions Recorded Confirmed Type nicotine 21 mg/24 hr daily 1 patch transdermal DAILY #28 ea 01/26/24 02/16/24 Rx transdermal patch (Nicoderm CQ) acetaminophen 500 mg tablet 500 mg PO Q6H PRN Pain (Scale 02/16/24 02/16/24 History Score 1-3) Allergies Allergy/AdvReac Type Severity Reaction Status Date / Time No Known Allergies Allergy Verified 01/24/24 09:25 Vital Signs Vital Signs - 24 hr 02/16/24 15:20 02/16/24 14:59 02/16/24 15:01 Temperature Pulse Rate 73 79 83 Respiratory Rate 20 17 18 Blood Pressure 129/76 123/72 125/76 Pulse Oximetry 97 98 99 Oxygen Delivery 02/16/24 15:20 02/16/24 16:01 02/16/24 16:56 Temperature Pulse Rate 73 66 67 Respiratory Rate 25 H 18 21 H Blood Pressure 128/76 115/68 115/68 Pulse Oximetry 97 97 99 Oxygen Delivery 02/16/24 16:58 02/16/24 17:31 02/16/24 16:31 Temperature Pulse Rate 69 71 64 Respiratory Rate 21 H 21 H Blood Pressure 119/78 Pulse Oximetry 100 98 Oxygen Delivery 02/16/24 16:45 02/16/24 17:00 02/16/24 17:01 Temperature Pulse Rate 72 68 72 Respiratory Rate 12 12 21 H Blood Pressure 119/75 Pulse Oximetry 100 99 99 Oxygen Delivery 02/16/24 17:15 02/16/24 17:30 02/16/24 19:34 Temperature 98.1 F Pulse Rate 68 67 66 Respiratory Rate 24 H 17 17 Blood Pressure 125/68 Pulse Oximetry 98 99 98 Oxygen Delivery 02/16/24 20:00 02/16/24 20:58 02/16/24 23:18 Temperature 98.0 F Pulse Rate 63 56 L Respiratory Rate 17 Blood Pressure 118/67 Pulse Oximetry 98 Oxygen Delivery Room Air 02/16/24 23:20 02/16/24 23:23 02/17/24 00:00 Temperature 98.0 F 98.0 F Pulse Rate 58 L 57 L 56 L Respiratory Rate 17 17 Blood Pressure 122/77 126/79 Pulse Oximetry 98 98 Oxygen Delivery 02/17/24 04:00 02/17/24 04:58 02/17/24 08:00 Temperature 98.0 F Pulse Rate 56 L 59 L Respiratory Rate 17 Blood Pressure 127/65 Pulse Oximetry 99 Oxygen Delivery Room Air H&P: Results Labs Labs: Short CBC 02/16/24 02/17/24 Range/Units 14:02 04:37 WBC 13.5 H 9.4 (4.5-10.0) K/mm3 Hgb 14.3 13.4 L (14.0-18.0) g/dL Hct 43.0 40.9 L (42.0-52.0) % Plt Count 307 277 (150-375) k/mm3 BMP 02/16/24 02/17/24 14:02 04:37 Sodium 137 137 Potassium 3.8 4.4 Chloride 104 104 Carbon Dioxide 24 24 BUN 9 11 Creatinine 0.90 0.90 Glucose 98 103 Calcium 9.6 9.1 Cardiac Enzymes 02/16/24 02/16/24 Rang
--- NOTE | 2024-02-17 14:09 | PM.IMPN ---
Progress Note: A&P Assessment and Plan (1) Paresthesia of left arm: Code(s): R20.2 - Paresthesia of skin Status: Acute Assessment and Plan: - Unclear etiology; CVA vs TIA vs other. - MRI brain negative. - CTA head/neck negative. - Labs unremarkable. - Tox screen negative except for cannabinoids. - EKG: SR - CXR negative. - ECHO showing LVEF 60-65 % with negative bubble study. - MRI cervical spine ordered per neuro. - Neurologist following and we appreciate assistance. (2) Facial paresthesia: Code(s): R20.2 - Paresthesia of skin Status: Acute Assessment and Plan: - Mgt as # 1 (3) Tobacco dependence: Code(s): F17.200 - Nicotine dependence, unspecified, uncomplicated Status: Acute Assessment and Plan: - Encouraged with cessation. - Nicotine patch PRN. Time Spent With Patient Time with patient: 25 - 35 minutes Subjective Date/time seen: 02/17/24 11:09 Interval history: Patient felt fine when he got up yesterday morning and sometime around 14:00 simply while standing up talking to his family members he began to feel lightheaded as though he may pass out. He sat down quickly and denies having loss of consciousness however he was ?out of it? for about 2 minutes. Since that time he has had mild paresthesias over the left lower face and into the left upper extremity, almost as though the arm has fallen asleep. Patient currently calm on bedrest and reports minimal left arm numbness, almost gone. Review of Systems Review of Systems: 12 systems were reviewed and are negative except for as per HPI. All systems reviewed & are unremarkable except as noted in HPI and below Exam Narrative: General: Well appearing, no acute distress. HEENT: PERRL, EOMI. Sclera anicteric. Moist mucous membranes. Neck: Supple. Respiratory: Lungs are clear to auscultation bilaterally. Cardiovascular: Regular rate and rhythm with S1-S2. Gastrointestinal: Abdomen is soft, nontender, and nondistended with positive bowel sounds. Skin: Warm and dry. Multiple tattoos and piercings. Extremities: No cyanosis, clubbing, or edema. Radial and pedal pulses 2+. Neurological: Alert and oriented. Cranial nerves 2-12 are grossly intact. Subjective minimal paresthesia to Left upper arm. Minimal weakness to left hand correction lieutenant compared to right. Psychiatric: Pleasant and cooperative with appropriate mood and affect. Objective Data Vital Signs Vital Signs: Vital Signs - 24 hr 02/16/24 15:20 02/16/24 14:59 02/16/24 15:01 Temperature Pulse Rate 73 79 83 Respiratory Rate 20 17 18 Blood Pressure 129/76 123/72 125/76 Pulse Oximetry 97 98 99 Oxygen Delivery 02/16/24 15:20 02/16/24 16:01 02/16/24 16:56 Temperature Pulse Rate 73 66 67 Respiratory Rate 25 H 18 21 H Blood Pressure 128/76 115/68 115/68 Pulse Oximetry 97 97 99 Oxygen Delivery 02/16/24 16:58 02/16/24 17:31 02/16/24 16:31 Temperature Pulse Rate 69 71 64 Respiratory Rate 21 H 21 H Blood Pressure 119/78 Pulse Oximetry 100 98 Oxygen Delivery 02/16/24 16:45 02/16/24 17:00 02/16/24 17:01 Temperature Pulse Rate 72 68 72 Respiratory Rate 12 12 21 H Blood Pressure 119/75 Pulse Oximetry 100 99 99 Oxygen Delivery 02/16/24 17:15 02/16/24 17:30 02/16/24 19:34 Temperature 98.1 F Pulse Rate 68 67 66 Respiratory Rate 24 H 17 17 Blood Pressure 125/68 Pulse Oximetry 98 99 98 Oxygen Delivery 02/16/24 20:00 02/16/24 20:58 02/16/24 23:18 Temperature 98.0 F Pulse Rate 63 56 L Respiratory Rate 17 Blood Pressure 118/67 Pulse Oximetry 98 Oxygen Delivery Room Air 02/16/24 23:20 02/16/24 23:23 02/17/24 00:00 Temperature 98.0 F 98.0 F Pulse Rate 58 L 57 L 56 L Respiratory Rate 17 17 Blood Pressure 122/77 126/79 Pulse Oximetry 98 98 Oxygen Delivery 02/17/24 04:00 02/17/24 04:58 02/17/24 08:00 Temperature 98.0 F Pulse Rate 56 L 59 L Respiratory Rate 1
[2024-02-18 00:04] VITALS: PULSE 66
[2024-02-18 04:00] VITALS: PULSE 87
[2024-02-18 05:03] VITALS: BP 116/65; PULSE 54; RESP 17; TEMP 37; O2SAT 98
[2024-02-18] MEDS: NICOTINE (*PBKC) 21 MG PATCH 1 PATCH TRANSDERM (08:28)
--- NOTE | 2024-02-18 11:55 | WPDNEUROPN ---
Subjective Date/time seen: 02/18/24 11:55 Interval history: Paresthesia of the left upper extremity with negative MRI of the head for tumor, vasculopathy, demyelinating disease, with documented normal MRI of the brain, MRI of cervical spine was obtained to rule out the possibility of cervical cord pathology that documented only finding suggestive of cervical spondylosis, patient is receiving only p.r.n. pain medication, CTA of the head and neck was also negative for vasculopathy or aneurysm and echocardiogram revealed only 60 to 65% ejection fraction of the left ventral without any abnormalities patient can be discharged on aspirin 81mg daily the instruction to follow with his family physician. Neurological exam remains stable Objective Data Vital Signs Vital Signs: Vital Signs - 24 hr 02/17/24 14:00 02/17/24 14:07 02/17/24 14:07 Temperature 36.7 C Pulse Rate 64 67 73 Respiratory Rate 20 Blood Pressure 136/77 136/72 127/75 Pulse Oximetry 99 99 99 Oxygen Delivery 02/17/24 12:00 02/17/24 16:00 02/17/24 19:28 Temperature 36.5 C Pulse Rate 64 68 65 Respiratory Rate 17 Blood Pressure 132/60 Pulse Oximetry 99 Oxygen Delivery 02/17/24 20:45 02/17/24 20:00 02/18/24 00:04 Temperature Pulse Rate 65 63 66 Respiratory Rate 17 Blood Pressure Pulse Oximetry 99 Oxygen Delivery Room Air 02/18/24 04:00 02/18/24 05:03 02/18/24 08:00 Temperature 37.0 C Pulse Rate 87 54 L Respiratory Rate 17 Blood Pressure 116/65 Pulse Oximetry 98 Oxygen Delivery Room Air Intake/Output Intake/Output: Intake & Output 02/15/24 02/16/24 02/17/24 02/18/24 23:59 23:59 23:59 23:59 Intake Total 1250 1840 910 Balance 1250 1840 910 Meds/Results Medications: Active Medications Generic Name Dose Route Start Last Admin Trade Name Freq PRN Reason Stop Dose Admin Acetaminophen 650 mg 02/16/24 16:51 Acetaminophen 325 Mg Tablet PO Q4H PRN Mild Pain (1-3) or Fever Nicotine 1 patch 02/17/24 09:00 02/18/24 08:28 Nicotine (*Pbkc) 21 Mg Patch TRANSDERM 1 patch DAILY SYDNEY Administration Perflutren Lipid Microsphere 0 ml 02/16/24 23:12 Perflutren Lipid Microspheres 1.5 Ml Vial Diluted To 10 Ml Total Volume IV PUSH 02/19/24 23:12 ONCE PRN adequate visualization Protocol Radiology Results: ITS Impressions Head/Neck CTA 02/16/24 14:56 IMPRESSION: 1. Normal CTA head and neck. Percent stenosis per NASCET criteria is 0%. 2. No evidence of significant intracranial stenosis or occlusion. Chest X-Ray 02/16/24 15:03 IMPRESSION: No acute cardiopulmonary process. Brain MRI 02/17/24 07:51 IMPRESSION: 1. Normal brain. Cervical Spine MRI 02/18/24 08:15 IMPRESSION: 1. Mild cervical spondylosis.
--- NOTE | 2024-02-18 12:49 | PM.DS ---
DS: Admitting Diagnosis Discharge Date 02/18/24 Admitting Diagnosis left arm weakness, left facial paresthesia DS: Discharge Diagnosis Discharge Diagnosis (1) Facial paresthesia: Code(s): R20.2 - Paresthesia of skin Status: Acute Assessment and Plan: - Resolved. Imaging with negative mri of head for acute findings. MRI cervical spine without acute findings. CTA head/neck no vasculopathy or aneurysm. Echocardiogram 60-65% EF no specific abnormalities. - Unclear etiology of symptoms which resolved spontaneously on 02/16 in the afternoon. - Plan for asas 81mg daily and aggressive risk reduction for this patient with his PCP. - PCP f/u is already in place with new PCP to establish next week in [place]. (2) Paresthesia of left arm: Code(s): R20.2 - Paresthesia of skin Status: Acute (3) Left-sided weakness: Code(s): R53.1 - Weakness Status: Acute DS: Summary Hospital Course Reason for hospitalization: Left arm weakness, left face paresthesia. Hospital Course: Barak Russo is a 33 year old male with significant tobacco history 2 packs per day x 20 years without additional medical problems per patient who presents with left sided paresthesia/weakness. He had imaging studies completed without any clear etiology noted. There is no finding of atrial fibrillation or additional risk factors for thromboembolism found. Neurology has been consulted and guided workup which as noted above, was unrevealing. On day of discharge Barak is doing well, no deficits on examination. He is eating and drinking well. He is ambulating about the room. He has f/u in place with a new pcp in the next week. He feels comfortable discharging to home. It is advised to return if symptoms return. Time spent discussing smoking cessation with patient: 3 to 10 minutes Status at Discharge Functional status at discharge: independent ambulation Time Spent with Patient Time attestation: Total time spent providing and/or coordinating discharge services: Time spent: Greater than 30 minutes Specific discharge activities: Start asa 81mg daily. Exam Narrative: GENERAL APPEARANCE: Appears to be in no acute distress. HEAD: normocephalic atraumatic EYES: PERRL, EOMI. Vision grossly intact. ENT: Hearing grossly intact, no nasal discharge NECK: Neck supple, trachea midline. CARDIAC: Normal S1/S2. Rhythm is regular. No murmurs, rubs, or gallops. No cyanosis or pallor. Extremities are warm and well perfused. LUNGS: Clear to auscultation without rales, rhonchi, wheezing or diminished breath sounds. Respirations even and unlabored. ABDOMEN: BS positive x 4 quadrants. Soft, nondistended, nontender. No guarding or rebound. MSK: No joint tenderness/swelling, fair strength in all extremities. PERIPHERAL VASCULAR: Peripheral pulses palpable. Normal perfusion, cap refill <2 seconds. No edema. NEURO: Follows commands. No focal deficits. SKIN: [place] without lesions or eruptions. PSYCH: Stable, no paranoia or delusional thinking. DS: Data Data Completed and Pending Completed studies during hospitalization: Head/neck cta. Chest xray. Brain mri. Cervical spine mri. Discharge Plan Discharge Attending physician on discharge: Khloe Gomez Consulting providers: Deja Tanner; Reuben Cortez Discharging Clinician: Reuben Cortez Anticipated Discharge Date/Time: 02/18/24 12:58 Patient Disposition: Home, Self-Care Activity: may shower and unlimited Diet: heart healthy Discharge Instructions: - Follow up with your primary care provider in the next week, as is already arranged. - Take all medications as prescribed. Start taking aspirin daily. - If you notice dark stools, or new shortness of breath, present for evaluation. - If anything other than steady improvement please contact your PCP or seek evaluation urgently. - Please follow all discharge directions as written, call for any questions or need for clarificati
== END 2024-02-18 13:30 | disposition home or self-care (01) ==
LOC: ANHED 16:52 → ANH2MED 17:44
PROVIDERS: Physician Assistant; Admitting Provider Internal Medicine; Emergency Provider Emergency Medicine; Visit Provider General Practice
DX: R20.2 Paresthesia of skin (principal); R53.1 Weakness; I07.1 Rheumatic tricuspid insufficiency; F17.210 Nicotine dependence, cigarettes, uncomplicated
CPT/HCPCS: 36415; 70496; 70498; 70553; 71045; 72156; 80048; 80053; 80307; 81001; 82550; 82607; 83605; 83735; 84145; 84443; 84484; 85025; 85027; 85610; 85730; 93005; 93306; 96360; 96375; 99285; A9270; A9577; G0378; G0379; J7030; Q9967

== ENCOUNTER 2025-03-25 11:05 | Emergency (ER) | payer SELFPAY ==
--- OUTSIDE RECORDS SUMMARY | 2025-03-25 11:08 | XMS_ITS | Clinical Summary ---
Author Organization [facility] [address] Address [address] [place] [address] Care Team Providers Care Fermenter Helper Name Role Phone No, Physician Primary Care Provider [phone] Allergies No known active allergies Medications No known medications Active Problems No known active problems Social History Tobacco Use Types Packs/Day Years Used Date Smoking Tobacco: Never Assessed Sex and Gender Information Value Date Recorded Sex Assigned at Not on file Legal Sex Male 7:14 AM CDT Gender Identity Not on file Sexual Orientation Not on file Obstetrics History Last Filed Vital Signs Vital Sign Reading Time Taken Comments Blood Pressure 124/78 07/26/2024 3:07 PM CONTACT LENS FITTER Pulse 90 07/26/2024 3:07 PM CONTACT LENS FITTER Temperature 36.8 C (98.3 F) 07/26/2024 3:07 PM CONTACT LENS FITTER Respiratory Rate 20 07/26/2024 3:07 PM CONTACT LENS FITTER Oxygen Saturation 97% 07/26/2024 3:07 PM CONTACT LENS FITTER Inhaled Oxygen Concentration - - Weight 79.4 kg (175 lb) 07/26/2024 3:07 PM CONTACT LENS FITTER Height 170.2 cm (5' 7) 04/13/2024 9:43 AM CDT Body Mass Index 27.41 04/13/2024 9:43 AM CDT Plan of Treatment Health Maintenance Due Date Last Done Comments Depression Screening 1989 Hepatitis C Screening 1989 Varicella Vaccines (1 of 2 - 13+ 2-dose series) 2002 Regular Well Visit/Exam 18-64 2007 HPV Vaccines (1 - 3-dose SCDM series) 2016 Influenza Vaccine (#1) 2025 DTaP/Tdap/Td Vaccine (7 - Td or Tdap) 09/04/2026 09/04/2016, 02/12/1995, 10/01/1993, Additional history exists Hepatitis B Screening Completed 08/25/2000 , 03/17/2000, 02/11/2000 Pneumococcal vaccine <65 Aged Out No longer eligible based on patient's age to complete this topic Insurance [facility] Care Teams Fermenter Helper Relationship Specialty Start Date End Date No, Physician PCP - General 02/16/24
--- OUTSIDE RECORDS SUMMARY | 2025-03-25 11:35 | XMS_ITS | Clinical Summary ---
Author Organization [facility] [address] Address [address] [place] [address] Care Team Providers Care Seafood Harvester Name Role Phone No, Physician Primary Care Provider [phone] Allergies No known active allergies Medications No [...] Comments Blood Pressure 124/78 07/26/2024 3:07 PM HYDRAULIC BOOM OPERATOR Pulse 90 07/26/2024 3:07 PM HYDRAULIC BOOM OPERATOR Temperature 36.8 C (98.3 F) 07/26/2024 3:07 PM HYDRAULIC BOOM OPERATOR Respiratory Rate 20 07/26/2024 3:07 PM HYDRAULIC BOOM OPERATOR Oxygen Saturation 97% 07/26/2024 3:07 PM HYDRAULIC BOOM OPERATOR Inhaled Oxygen Concentration - - Weight 79.4 kg (175 lb) 07/26/2024 3:07 PM HYDRAULIC BOOM OPERATOR Height 170.2 cm (5' 7) 04/13/2024 9:43 [...] patient's age to complete this topic Insurance [facility] Care Teams Seafood Harvester Relationship Specialty Start Date End Date No, Physician PCP - General 02/16/24
[2025-03-25 11:45] VITALS: BP 133/77; PULSE 60; RESP 18; TEMP 36.5; O2SAT 98
--- NOTE | 2025-03-25 11:59 | ED_ITS ---
HPI - General Adult General Chief complaint: Dental/Oral Stated complaint: dental infection Time Seen by Provider: 03/25/25 11:26 History of Present Illness HPI narrative: 34-year-old male present emergency department for evaluation for left-sided dental pain. Patient also reports he does have history of kidney disease and is concerned that he is dehydrated. Related Data Home Medications ?Medication ?Instructions ?Recorded ?Confirmed ?Last Taken ?Type acetaminophen 500 mg tablet 500 mg PO Q6H PRN Pain (Sc margarette 02/16/24 02/16/24 Unknown History Score 1-3) Allergies Allergy/AdvReac Type Severity Reaction Status Date / Time No Known Allergies Allergy Verified 01/24/24 09:25 Review of Systems 2 Review of Systems: All systems reviewed & are unremarkable except as noted in HPI and below PMFSH Past Medical History Medical History Tobacco dependence Surgical History Surgical History History of open reduction and internal fixation (ORIF) procedure Repair right hand fracture. Family History Family History Other Family history non-contributory Social History Social History Social History: Surrogate medical decision maker: Ileana Russo, spouse. Code status: Full code. Smoking packs per day: 2 Smoking cigarettes per day: 40.0 Smoking status: Current every day smoker Tobacco type: cigarettes Alcohol intake: never Substance use: current Substance use type: marijuana Last use: 01/22/24 Do You Feel Safe in your Home?: Yes Lack of Transportation: No Lack of Food: Never True Current Housing: I Have Housing Concerned About Future Housing: No Difficulty Paying Gas/Electric Bills: No Difficulty Paying for Meds: No Currently Unemployed: No Education: High School Diploma/GED Difficulty w/ Childcare or Family Care: No Additional living arrangements comments: Lives with spouse in their 3 children. Spiritual care concerns: No Exam 2 Narrative: APPEARANCE: Mild left-sided facial swelling HEAD: normocephalic, atraumatic. EYES: PERRLA/EOMI, conjunctivae clear. NOSE: Normal no drainage EARS:TMS clear with good light reflex. THROAT: Pharynx clear, no exudate. No trismus. No dental abscess amenable to drainage NECK: Supple. No adenopathy, no masses. RESPIRATORY: Airway patent, respirations nonlabored. Clear to auscultation bilaterally, no rales, rhonchi, wheezing. CARDIOVASCULAR: Regular rate and rhythm without murmurs rubs or gallops. ABDOMINAL: Soft, nontender, nondistended, normal bowel sounds MUSCULOSKELETAL: Moves all extremities. Strength/ROM intact, No edema, No calf tenderness. NEURO: Alert. Cranial nerves II through XII intact. Good gait. Good coordination SKIN: Warm, dry. Normal Color Course Vital Signs Vital signs: Vital Signs Temperature 97.7 F 03/25/25 11:45 Pulse Rate 60 03/25/25 11:45 Respiratory Rate 18 03/25/25 11:45 Blood Pressure 133/77 03/25/25 11:45 Pulse Oximetry 98 03/25/25 11:45 Oxygen Delivery Room Air 03/25/25 11:45 Temperature 97.7 F 03/25/25 11:45 Pulse Rate 60 03/25/25 11:45 Respiratory Rate 18 03/25/25 11:45 Blood Pressure 133/77 03/25/25 11:45 Pulse Oximetry 98 03/25/25 11:45 Oxygen Delivery Room Air 03/25/25 11:45 Medical Decision Making MDM Narrative Medical decision making narrative: 34-year-old male presents to the emergency department for evaluation for dental pain. Patient also reports he has got history of chronic kidney disease and was concern for possible dehydration. Patient does have an elevated leukocytosis of 24.1. Patient does have previous elevated white blood cell counts. Patient has a hemoglobin of 15.1. No acute abnormalities the patient's CMP was normal kidney function. UA was negative for infection. Patient was treated 2 L of lactated Ringer's. Patient was started on IV clindamycin emergency department. Patient was discharged home on clindamycin. Patient family updated results of the workup they are comfortable plan for discharge and close follow-up. Differential Diagnosis Differential Diagnosis: Acute kidney disease, chronic kidney disease, dehydration, electrolyte abnormality, dental abscess, dental infection Vital Signs Vital Signs: Vital Signs Temperature 97.7 F 03/25/25 11:45 Pulse Rate 60 03/25/25 11:45 Respiratory Rate 18 03/25/25 11:45 Blood Pressure 133/77 03/25/25 11:45 Pulse Oximetry 98 03/25/25 11:45 Oxygen Delivery Room Air 03/25/25 11:45 Temperature 97.7 F 03/25/25 11:45 Pulse Rate 60 03/25/25 11:45 Respiratory Rate 18 03/25/25 11:45 Blood Pressure 133/77 03/25/25 11:45 Pulse Oximetry 98 03/25/25 11:45 Oxygen Delivery Room Air 03/25/25 11:45 Lab Data 03/25/25 12:03 03/25/25 12:03 Labs: Lab Results 03/25/25 03/25/25 Range/Units 12:03 13:43 WBC 24.1 H (4.5-10.0) K/mm3 RBC 4.76 (4.6-6.20) M/mm3 Hgb 15.1 (14.0-18.0) g/dL Hct 44.7 (42.0-52.0) % MCV 93.9 (80-100) fl MCH 31.7 (26-34) pg MCHC 33.8 (32-36) g/dl RDW 14.0 (11.5-14.5) % Plt Count 373 (150-375) k/mm3 MPV 8.6 (7.4-10.4) fl Immature Gran % (Auto) Not Reportable Neut % (Auto) Not Reportable Lymph % (Auto) Not Reportable [place] % (Auto) Not Reportable Eos % (Auto) Not Reportable Baso % (Auto) Not Reportable Lymph # (Auto) Not Reportable [place] # (Auto) Not Reportable Eos # (Auto) Not Reportable Baso # (Auto) Not Reportable Abs Immat Gran (auto) Not Reportable Absolute Neuts (auto) Not Reportable Absolute Nucleated RBC Not Reportable Total Counted 100 Neutrophils % (Manual) 88 H (46-73) % Band Neutrophils % 1 (0-6) % Lymphocytes % (Manual) 9 L (18-44) % Monocytes % (Manual) 2 L (3-9) % Eosinophils % (Manual) 0 (0-4) % Basophils % (Manual) 0 (0-1) % Nucleated RBC % Not Reportable Abs Neuts (Manual) 21.44 H (1.3-6.7) K/mm3 Abs Lymphs (Manual) 2.16 (1.1-4.5) K/mm3 Abs Monocytes (Manual) 0.48 (0.1-0.90) K/mm3 Absolute Eos (Manual) 0.00 L (0.02-0.50) K/mm3 Abs Basophils (Manual) 0.00 (0.0-0.1) K/mm3 Platelet Estimate Adequate (Adequate) Schistocytes None seen Sodium 140 (137-145) mmol/L Potassium 4.1 (3.4-5.0) mmol/L Chloride 104 (98-107) mmol/L Carbon Dioxide 27 (22-30) mmol/L Anion Gap 9 (4-12) mmol/L BUN 6 L D (9-20) mg/dL Creatinine 0.88 (0.7-1.3) mg/dL Estim Creat Clear Calc 104 ml/min Estimated GFR > 60 (59 - ) Glucose 114 H (65-110) mg/dL Calcium 9.9 (8.4-10.2) mg/dL Total Bilirubin 0.6 (0.2-1.3) mg/dL AST 18 (17-59) U/L ALT 21 (6-50) U/L Alkaline Phosphatase 96 (38-126) U/L Total Protein 8.0 (6.3-8.2) g/dL Albumin 4.6 (3.5-5.1) g/dL Urine Color Yellow (Yellow) Urine Appearance Clear (Clear) Urine pH 6.0 (5.0-9.0) Ur Specific [place] 1.008 (1.001-1.035) Urine Protein Negative (Negative) mg/dL Urine Glucose (UA) Negative (Negative) mg/dL Urine Ketones Negative (Negative) mg/dL Ur Blood (Man) Negative (Negative) Urine Nitrate Negative (Negative) Urine Bilirubin Negative (Negative) Urine Urobilinogen 0.2 (<2.0) mg/dL Leukocyte Esterase Rfl Negative (Negative) SCOTTY/UL Discharge Plan Discharge Clinical Impression: Facial swelling, Pain, dental Patient Disposition: Home Condition: Stable Instructions: Antibiotic Form, Acute Dental Trauma (ED) Additional Instructions: Antibiotic as directed for dental infection. Drink plenty of fluids. Zofran as needed for nausea control. Have close follow-up with your primary care physician. Patient Language: [place] Prescriptions: New clindamycin HCl [Cleocin HCl] 300 mg capsule 300 mg PO Q6H 7 Days Qty: 28 0RF ondansetron 4 mg tablet,disintegrating 4 mg PO Q8H PRN (Reason: nausea and vomiting) Qty: 14 0RF No Action nicotine [Nicoderm CQ] 21 mg/24 hr Patch 24 Hour 1 patch transdermal DAILY Qty: 28 0RF acetaminophen 500 mg Tablet 500 mg PO Q6H PRN (Reason: Pain (Scale Score 1-3)) aspirin 81 mg tablet,delayed release (DR/EC) 81 mg PO DAILY Qty: 30 0RF Rx Instructions: Take one tablet daily. OK for over the counter formulation. Follow-up/Referrals: UNKNOWN,DOCTOR [Primary Care Provider] Stand Alone Forms: Work/School Release IP
[2025-03-25 12:12] LABS: Hematocrit 44.7 % (42.0-52.0); Hemoglobin 15.1 g/dL (14.0-18.0); Mean Corpuscular HGB Conc 33.8 g/dl (32-36); Mean Corpuscular Hemoglobin 31.7 pg (26-34); Mean Corpuscular Volume 93.9 fl (80-100); Platelet Count Result 373 k/mm3 (150-375); Red Blood Count 4.76 M/mm3 (4.6-6.20); White Blood Count 24.1 K/mm3 (4.5-10.0)
[2025-03-25] MEDS: LACTATED RINGERS 1,000 ML 999 ML IV CONT ×2 (12:19→12:20)
[2025-03-25] MEDS: CLINDAMYCIN 600 MG/D5W 50 ML 600 MG/50 ML PIGGYBACK 100 MG IVPB (12:20)
[2025-03-25] MEDS: HYDROcodone/acetaminophen (*CRX) 7.5-325 MG TABLET 1 TAB PO (12:20)
[2025-03-25 12:32] LABS: Alanine Aminotransferase 21 U/L (6-50); Albumin Level 4.6 g/dL (3.5-5.1); Alkaline Phosphatase 96 U/L (38-126); Anion Gap 9 mmol/L (4-12); Aspartate Amino Transferase 18 U/L (17-59); Bilirubin,Total 0.6 mg/dL (0.2-1.3); Blood Urea Nitrogen 6 mg/dL (9-20); Calcium 9.9 mg/dL (8.4-10.2); Carbon Dioxide 27 mmol/L (22-30); Chloride 104 mmol/L (98-107); Estimated CRCL calculation 104 ml/min; Estimated Glomerular Filt Rate > 60; Glucose 114 mg/dL (65-110); Potassium 4.1 mmol/L (3.4-5.0); Sodium 140 mmol/L (137-145); Total Protein 8.0 g/dL (6.3-8.2)
[2025-03-25 12:35] LABS: Band Neutrophils Percent 1 % (0-6); Basophils Absolute Manual 0.00 K/mm3 (0.0-0.1); Basophils Percent Manual 0 % (0-1); Eosinophils Absolute Manual 0.00 K/mm3 (0.02-0.50); Eosinophils Percent Manual 0 % (0-4); Lymphocytes Absolute Manual 2.16 K/mm3 (1.1-4.5); Lymphocytes Percent Manual 9 % (18-44); Monocytes Absolute Manual 0.48 K/mm3 (0.1-0.90); Monocytes Percent Manual 2 % (3-9); Neutrophils Absolute Manual 21.44 K/mm3 (1.3-6.7); Neutrophils Percent Manual 88 % (46-73); Total Cells Counted 100
[2025-03-25 12:36] LABS: Schistocytes None Seen
[2025-03-25 13:58] LABS: Add Urine Microscopic? NO; Appearance Urine Clear (Clear); Glucose Urine UA Negative (Negative); Leukocyte Esterase Ur Negative LEU/UL (Negative); Nitrate Urine Negative (Negative); Specific Grav Ur 1.008 (1.001-1.035)
== END 2025-03-25 14:35 | disposition home or self-care (01) ==
PROVIDERS: Emergency Provider Emergency Medicine
DX: K08.89 Other specified disorders of teeth and supporting structures (principal); R22.0 Localized swelling, mass and lump, head; F17.210 Nicotine dependence, cigarettes, uncomplicated; F12.90 Cannabis use, unspecified, uncomplicated
CPT/HCPCS: 36415; 80053; 81003; 85025; 96361; 96365; 99284; A9270; J7120